=== PATIENT | female | born 1940 | race Caucasian/White ===

== ENCOUNTER → 2016-12-08 | Outpatient (CLI) | payer MEDICARE ==
[~2016-12-08] MED LIST: ASPI81 PO; OMEP20TA OR
[2016-12-08 12:04] LABS: HEMATOCRIT 37.6 % (35.0-46.0); MEAN CELL VOLUME 91.1 FL (80.0-100.0); MEAN CORPUSCULAR HEMOGLOBIN 29.4 PG (27.0-34.0); MEAN CORPUSCULAR HGB CONC 32.3 % (32.0-36.0); PLATELET COUNT 327 TH/MM3 (150-450); RED BLOOD COUNT 4.13 MIL/MM3 (4.00-5.30); RED CELL DISTRIBUTION WIDTH 15.6 % (11.6-17.2); REVIEW FLAG FINAL; WHITE BLOOD COUNT 7.9 TH/MM3 (4.0-11.0)
[2016-12-08 12:09] LABS: BACTERIA, URINE MANY /hpf; BLOOD, URINE SMALL (NEG); GLUCOSE,URINE NEG (NEG); KETONE, URINE NEG (NEG); MUCUS URINE FEW /lpf (OCC); SQUAMOUS EPITHELIAL CELL URINE 3 /hpf (0-5); URINE COLOR YELLOW (YELLW/STRAW)
[2016-12-08 12:12] LABS: NITRITE,URINE POS (NEG)
[2016-12-08 12:33] LABS: TRANSFERRIN IRON PROFILE 260 MG/DL (200-360)
== END ==
LOC: CLAB 11:23
DX: R39.89 Other symptoms and signs involving the genitourinary system (principal); D64.9 Anemia, unspecified
CPT/HCPCS: 36415; 81001; 83540; 83550; 85027

== ENCOUNTER 2017-12-21 21:35 | Observation (INO) | payer MEDICARE ==
[~2017-12-21] VITALS: Ht 157.5 cm; Wt 79.6 kg
[2017-12-21 21:40] VITALS: BP 207/76; PULSE 118; RESP 24; TEMP 98.2; O2SAT 95
[2017-12-21 21:57] VITALS: BP 194/103; PULSE 112; RESP 18; O2SAT 93
[2017-12-21] MEDS ORDERED: OMEP20TA93 PO (22:00)
[2017-12-21] MEDS ORDERED: ASPI81CH6 CHEW (22:00)
[2017-12-21] MEDS ORDERED: SODIUM CHLORIDE 0.9% FLUSH 10 ML FLUSH IVF PRN (22:00)
[2017-12-21] MEDS ORDERED: TEMA15CA PO (22:00)
[2017-12-21 22:25] VITALS: BP 181/82
[2017-12-21 22:25] LABS: AUTOMATED NEUTROPHIL # 5.7 TH/MM3 (1.8-7.7); BASOPHIL # 0.1 TH/MM3 (0-0.2); BASOPHIL % 1.2 % (0.0-2.0); EOSINOPHIL # 0.3 TH/MM3 (0-0.4); EOSINOPHIL % 2.9 % (0.0-4.0); HEMATOCRIT 35.2 % (35.0-46.0); HEMOGLOBIN 11.4 GM/DL (11.6-15.3); LYMPH % 26.4 % (9.0-44.0); LYMPHOCYTE # 2.4 TH/MM3 (1.0-4.8); MEAN CELL VOLUME 88.6 FL (80.0-100.0); MEAN CORPUSCULAR HEMOGLOBIN 28.7 PG (27.0-34.0); MEAN CORPUSCULAR HGB CONC 32.4 % (32.0-36.0); MEAN PLATELET VOLUME 8.4 FL (7.0-11.0); MONO % 8.1 % (0.0-8.0); MONOCYTE # 0.7 TH/MM3 (0-0.9); NEUT % 61.4 % (16.0-70.0); PLATELET COUNT 312 TH/MM3 (150-450); RED BLOOD COUNT 3.98 MIL/MM3 (4.00-5.30); RED CELL DISTRIBUTION WIDTH 14.6 % (11.6-17.2); WHITE BLOOD COUNT 9.2 TH/MM3 (4.0-11.0)
[2017-12-21 22:34] LABS: CHLORIDE 107 MEQ/L (98-107); SODIUM (NA) 140 MEQ/L (136-145)
[2017-12-21 22:38] LABS: ALBUMIN 3.6 GM/DL (3.4-5.0); BICARBONATE 26.8 MEQ/L (21.0-32.0); BLOOD UREA NITROGEN 23 MG/DL (7-18); CALCIUM 8.5 MG/DL (8.5-10.1); GLUCOSE,RANDOM 158 MG/DL (74-106); MAGNESIUM 2.1 MG/DL (1.5-2.5)
[2017-12-21 22:40] LABS: INTERNATIONAL NORMALIZED RATIO 0.9 RATIO; PROTHROMBIN TIME - PATIENT 9.5 SEC (9.8-11.6)
[2017-12-21 22:41] LABS: ALT (GPT) 24 U/L (10-53); AST (GOT) 15 U/L (15-37); CREATININE 0.64 MG/DL (0.50-1.00); GLOMERULAR FILTRATION RATE 90 ML/MIN (>89)
--- NOTE | 2017-12-21 22:41 | RADRPT ---
EXAM DATE/TIME: 12/21/2017 22:27 [facility] COMPARISON: No previous studies available for comparison. INDICATIONS : Dizziness. RADIATION DOSE: 54.75 CTDIvol (mGy) MEDICAL HISTORY : Cerebrovascular disease. Cardiovascular disease SURGICAL HISTORY : None. ENCOUNTER: Initial ACUITY: 1 day PAIN SCALE: 0/10 LOCATION: cranial TECHNIQUE: Multiple contiguous axial images were obtained of the head. Using automated exposure control and adj ustment of the mA and/or kV according to patient size, radiation dose was kept as low as reasonably a chievable to obtain optimal diagnostic quality images. DICOM format image data is available electro nically for review and comparison. FINDINGS: CEREBRUM: The ventricles are normal for age. No evidence of midline shift, mass lesion, hemorrhage or acute in farction. No extra-axial fluid collections are seen. POSTERIOR FOSSA: The cerebellum and brainstem are intact. The 4th ventricle is midline. The cerebellopontine angle i s unremarkable. EXTRACRANIAL: The visualized portion of the orbits is intact. SKULL: The calvaria is intact. No evidence of skull fracture. CONCLUSION: Normal examination for a patient of this age. Ad Gonzalez MD on December 21, 2017 at 22:38 Board Certified Radiologist. This report was verified electronically.
[2017-12-21 22:42] LABS: TOTAL BILIRUBIN ADULT 0.1 MG/DL (0.2-1.0)
[2017-12-21 22:43] LABS: TOTAL PROTEIN 7.4 GM/DL (6.4-8.2)
[2017-12-21 22:44] LABS: ALKALINE PHOSPHATASE 99 U/L (45-117)
[2017-12-21 22:46] LABS: TROPONIN I LESS THAN 0.02 NG/ML (0.02-0.05)
[2017-12-21 23:08] VITALS: BP 177/68; PULSE 87; RESP 18; O2SAT 95
[2017-12-21] MEDS ORDERED: ACETAMINOPHEN 325 MG TAB PO ONE (23:15)
[2017-12-21] MEDS ORDERED: cloNIDine HCL 0.1 MG TAB PO ONE (23:15)
[2017-12-21 23:27] LABS: BILIRUBIN, URINE NEG (NEG); BLOOD, URINE SMALL (NEG); GLUCOSE,URINE NEG (NEG); KETONE, URINE NEG (NEG); NITRITE,URINE NEG (NEG); PH, URINE 5.5 (5.0-8.5); URINE LEUKOCYTE ESTERASE NEG (NEG)
[2017-12-21 23:34] LABS: URINE COLOR YELLOW (YELLW/STRAW)
--- NOTE | 2017-12-21 23:34 | RADRPT ---
EXAM DATE/TIME: 12/21/2017 22:50 [facility] COMPARISON: No previous studies available for comparison. INDICATIONS : Chest palpitations. MEDICAL HISTORY : Cerebrovascular disease. Cardiovascular disease SURGICAL HISTORY : None. ENCOUNTER: Initial ACUITY: 1 day PAIN SCORE: 10 LOCATION: Bilateral chest FINDINGS: Portable AP view of the chest demonstrates a normal-sized cardiac silhouette with calcification of th e aorta. No effusion, consolidation, or pneumothorax is visualized. The bones and soft tissues demons trate no acute abnormality. CONCLUSION: No acute cardiopulmonary abnormality is identified. Bravo Garay MD on December 21, 2017 at 23:31 Board Certified Radiologist. This report was verified electronically.
[2017-12-21 23:35] LABS: MUCUS URINE FEW /lpf (OCC); RBC, URINE 0-3 /hpf (0-3); SQUAMOUS EPITHELIAL CELL URINE 0-5 /hpf (0-5); WBC, URINE 0-2 /hpf (0-5)
[2017-12-21 23:47] VITALS: BP 160/71; PULSE 84; O2SAT 92
[2017-12-22] VITALS (13 sets, daily range): BP systolic 127–165; BP diastolic 57–93; PULSE 66–86; RESP 14–20; TEMP 92–98; O2SAT 92–97
--- NOTE | 2017-12-22 00:14 | PD ---
HPI Chief Complaint: Cardiac Complaint Time Seen by Provider: 21:59 Travel History International Travel<30 days: No Contact w/Intl Traveler<30days: No Traveled to known affect area: No History of Present Illness HPI 77-year-old female presents to the emergency department by private transportation to care for his family for evaluation of racing heart and transient numbness of the left upper extremity. Patient is visiting from [place]. Patient has been here since August. Patient states she is followed by a local physician Dr. Roman while visiting here during the winter months. Patient is followed by primary care and psychiatric tech in [place]. Patient denies any known coronary vascular disease. Patient has had CVA with residual right hand numbness patient reports frequent TIAs. Patient states she does not feel like she had a TIA tonight. Patient states that she has never had a rapid heartbeat before. Patient denies any orthopnea or PND. Patient denies any cough congestion or hemoptysis. Patient's had no recent febrile illness. Patient did drink alcoholic beverages this evening and has had issues with thyroid in the past. Patient has history of emphysema and uses nebulized treatments twice daily and supplemental oxygen at nighttime. Patient does not report sleep apnea. Patient also has reflux. Patient denies history of hypertension dyslipidemia heart disease or diabetes. Patient denies tobacco use. Patient's had no lower extremity pain or swelling. No recent long distance travel protracted bedrest surgical procedure or history of clotting disorder. Patient rates discomfort 0/10 intensity. PFSH Past Medical History Narrative Medical Anemia arthritis COPD CVA TIA GERD thyroid dysfunction; appendectomy hysterectomy cholecystectomy; no tobacco use; nursing notes reviewed Anemia: Yes Arthritis: Yes (OSTEO) Cardiac Catheterization: Yes COPD: Yes Cerebrovascular Accident: Yes (2014)) Diminished Hearing: No GERD: Yes Headaches: Yes Medical other: Yes (MENINGITIS: VIRAL) Pneumonia: Yes Thyroid Disease: Yes ("HYPERACTIVE" IN 50'S) Ulcer: Yes (GASTRIC) Influenza Vaccination: Yes ?: Not Menopausal: Yes : 3 Para: 3 Past Surgical History Appendectomy: Yes Cholecystectomy: Yes Hysterectomy: Yes Oral Surgery: Yes Tonsillectomy: Yes (AND ADENOIDS) Other Surgery: Yes (PROLAPSED BLADDER) Social History Alcohol Use: No (STATED 12/21/17 "NORMALLY I DON'T DRINK, BUT TODAY I HAD 3 WHISKYS") Tobacco Use: No (QUIT AGE 39) Substance Use: No Allergies-Medications (Allergen,Severity, Reaction): Coded Allergies: No Known Allergies (Unverified Allergy, Unknown, 12/22/17) Reported Meds & Prescriptions Reported Meds & Active Scripts Active Reported Temazepam 15 Mg Cap 15 Mg PO HS PRN Omeprazole 20 Mg Tab 20 Mg PO DAILY Aspirin Low Dose (Aspirin) 81 Mg Chew 81 Mg CHEW DAILY Review of Systems Except as stated in HPI: all other systems reviewed are Neg Physical Exam Narrative GENERAL: Well-developed well-nourished female no acute distress or respiratory distress; GCS 15 SKIN: Warm and dry. HEAD: Atraumatic. Normocephalic. EYES: Pupils equal and round. No scleral icterus. No injection or drainage. ENT: No nasal bleeding or discharge. Mucous membranes pink and moist. NECK: Trachea midline. No JVD. CARDIOVASCULAR: Regular rate and rhythm. RESPIRATORY: No accessory muscle use. Clear to auscultation. Breath sounds equal bilaterally. GASTROINTESTINAL: Abdomen soft, non-tender, nondistended. Hepatic and splenic margins not palpable. MUSCULOSKELETAL: Extremities without clubbing, cyanosis, or edema. No obvious deformities. NEUROLOGICAL: Awake and alert. No obvious cranial nerve deficits. Motor grossly within normal limits. Five out of 5 muscle strength in the arms and legs. No limb ataxia. No pronator drift. Sensory exam is intact. GCS 15. Normal speech. PSYCHIATRIC: Appropriate mood and affect; insight and judgment normal. Data Data Last Documented VS Vital Signs Date Time Temp Pulse Resp B/P (MAP) Pulse Ox O2 Delivery O2 Flow Rate FiO2 12/21/17 23:47 84 160/71 (100) 92 Room Air 12/21/17 23:08 18 12/21/17 21:40 98.2 Orders Orders Electrocardiogram (12/21/17 21:59) Complete Blood Count With Diff (12/21/17 21:59) Comprehensive Metabolic Panel (12/21/17 21:59) Magnesium (Mg) (12/21/17 21:59) B-Type Natriuretic Peptide (12/21/17 21:59) Ckmb (Isoenzyme) Profile (12/21/17 21:59) Troponin I (12/21/17 21:59) Act Partial Throm Time (Ptt) (12/21/17 21:59) Prothrombin Time / Inr (Pt) (12/21/17 21:59) Urinalysis - C+S If Indicated (12/21/17 21:59) Chest, Single Ap (12/21/17 21:59) Ct Brain W/O Iv Contrast(Rout) (12/21/17 21:59) Blood Glucose (12/21/17 21:59) Ecg Monitoring (12/21/17 21:59) Iv Access Insert/Monitor (12/21/17 21:59) Oximetry (12/21/17 21:59) Sodium Chloride 0.9% Flush (Ns Flush) (12/21/17 22:00) Lactic Acid (12/21/17 21:59) Drug Screen, Random Urine (12/21/17 22:10) Alcohol (Ethanol) (12/21/17 21:50) Thyroid Stimulating Hormone (12/21/17 21:50) Clonidine (Catapres) (12/21/17 23:15) Acetaminophen (Tylenol) (12/21/17 23:15) Admit Order (Ed Use Only) (12/22/17 ) Financial Analyst Accountant / Telemetry [id number] (12/22/17 00:03) Activity Oob With Assistance (12/22/17 00:03) Notify Dr: Other (12/22/17 00:03) D-Dimer (12/21/17 21:50) Labs Laboratory Tests Test 12/21/17 21:50 12/21/17 22:13 12/21/17 23:00 White Blood Count 9.2 TH/MM3 Red Blood Count 3.98 MIL/MM3 Hemoglobin 11.4 GM/DL Hematocrit 35.2 % Mean Corpuscular Volume 88.6 FL Mean Corpuscular Hemoglobin 28.7 PG Mean Corpuscular Hemoglobin Concent 32.4 % Red Cell Distribution Width 14.6 % Platelet Count 312 TH/MM3 Mean Platelet Volume 8.4 FL Neutrophils (%) (Auto) 61.4 % Lymphocytes (%) (Auto) 26.4 % Monocytes (%) (Auto) 8.1 % Eosinophils (%) (Auto) 2.9 % Basophils (%) (Auto) 1.2 % Neutrophils # (Auto) 5.7 TH/MM3 Lymphocytes # (Auto) 2.4 TH/MM3 Monocytes # (Auto) 0.7 TH/MM3 Eosinophils # (Auto) 0.3 TH/MM3 Basophils # (Auto) 0.1 TH/MM3 CBC Comment DIFF FINAL Differential Comment Prothrombin Time 9.5 SEC Prothromb Time International Ratio 0.9 RATIO Activated Partial Thromboplast Time 25.0 SEC D-Dimer Quantitative (PE/DVT) 0.47 MG/L FEU Blood Urea Nitrogen 23 MG/DL Creatinine 0.64 MG/DL Random Glucose 158 MG/DL Total Protein 7.4 GM/DL Albumin 3.6 GM/DL Calcium Level 8.5 MG/DL Magnesium Level 2.1 MG/DL Alkaline Phosphatase 99 U/L Aspartate Amino Transf (AST/SGOT) 15 U/L Alanine Aminotransferase (ALT/SGPT) 24 U/L Total Bilirubin 0.1 MG/DL Sodium Level 140 MEQ/L Potassium Level 3.5 MEQ/L Chloride Level 107 MEQ/L Carbon Dioxide Level 26.8 MEQ/L Anion Gap 6 MEQ/L Estimat Glomerular Filtration Rate 90 ML/MIN Total Creatine Kinase 34 U/L Troponin I LESS THAN 0.02 NG/ML B-Type Natriuretic Peptide 58 PG/ML Thyroid Stimulating Hormone 3rd Gen 1.480 uIU/ML Ethyl Alcohol Level LESS THAN 3 MG/DL Lactic Acid Level 1.5 mmol/L Urine Color YELLOW Urine Turbidity CLEAR Urine pH 5.5 Urine Specific [place] 1.016 Urine Protein NEG mg/dL Urine Glucose (UA) NEG mg/dL Urine Ketones NEG mg/dL Urine Occult Blood SMALL Urine Nitrite NEG Urine Bilirubin NEG Urine Leukocyte Esterase NEG Urine RBC 0-3 /hpf Urine WBC 0-2 /hpf Urine Squamous Epithelial Cells 0-5 /hpf Urine Mucus FEW /lpf Microscopic Urinalysis Comment CULT NOT INDICATED Urine Opiates Screen NEG Urine Barbiturates Screen NEG Urine Amphetamines Screen NEG Urine Benzodiazepines Screen NEG Urine Cocaine Screen NEG Urine Cannabinoids Screen NEG [facility] Medical Decision Making Medical Screen Exam Complete: Yes Emergency Medical Condition: Yes Medical Record Reviewed: Yes Interpretation(s) d-dimer: 0.47, not elevated EKG: Sinus tachycardia no acute ST elevation injury pattern or ectopy noted CBC & BMP Diagram 12/21/17 21:50 Total Protein 7.4, Albumin 3.6, Calcium Level 8.5, Magnesium Level 2.1, Alkaline Phosphatase 99, Aspartate Amino Transf (AST/SGOT) 15, Alanine Aminotransferase (ALT/SGPT) 24, Total Bilirubin 0.1 L Vital Signs Date Time Temp Pulse Resp B/P (MAP) Pulse Ox O2 Delivery O2 Flow Rate FiO2 12/21/17 23:47 84 160/71 (100) 92 Room Air 12/21/17 23:08 87 18 177/68 (104) 95 Room Air 12/21/17 22:25 181/82 (115) 12/21/17 21:57 112 18 194/103 (133) 93 Room Air 12/21/17 21:40 98.2 118 24 207/76 (119) 95 12/21/17 21:40 93 Room Air Last Impressions Head CT [id number]/21/[id number] Signed Impressions: Service Date/Time: Thursday, December 21, 2017 22:27 - CONCLUSION: Normal examination for a patient of this age. Ad Gonzalez MD Chest X-Ray 12/21/172158 Signed Impressions: Service Date/Time: Thursday, December 21, 2017 22:50 - CONCLUSION: No acute cardiopulmonary abnormality is identified. Bravo Garay MD Differential Diagnosis Palpitations, arrhythmia, TIA, CVA, atypical chest pain, ACS, exacerbation COPD , PE Narrative Course Patient without recent respiratory illness travel chest pain or shortness of breath presents for complaint increased heart rate and transient numbness of the left upper extremities which was resolved. Patient sent for stat CT brain noncontrast EKG is sinus tachycardia with no acute injury pattern; systems collected and sent for resulting Patient has returned from [place] and heart rate is sinus rhythm without ectopy patient continues to deny any recurrence of paresthesias or focality on exam. O2 saturations 92-95% on room air patient reports that she is a supplemental oxygen at bedtime 1.5 L nasal cannula Lab data is found to be grossly within normal limits; in view of tachycardia and O2 sats of 92% we will perform a d-dimer if this is elevated we will proceed with a CT pulmonary angiogram; patient's case discussed with on-call medicine for palpitations and possible TIA patient will be admitted for observation Physician Communication Physician Communication discussed with Dr Nicholson -- OBS Diagnosis Primary Impression: Rapid palpitations Additional Impressions: TIA (transient ischemic attack) History of COPD Admitting Information Admitting Physician Requests: Observation Jayla Oakes MD Dec 22, 2017 00:14
[2017-12-22] MEDS ORDERED: SODIUM CHLORIDE 0.9% FLUSH 10 ML FLUSH IV FLUSH PRN (00:15)
[2017-12-22] MEDS ORDERED: ACETAMINOPHEN 325 MG TAB PO PRN (00:15)
[2017-12-22] MEDS ORDERED: DEXTROSE 50% IN WATER 50 ML VIAL(D50) IV PUSH PRN (00:15)
[2017-12-22] MEDS ORDERED: GLUCAGON 1 MG/ML VIAL OTHER PRN (00:15)
[2017-12-22] MEDS ORDERED: ONDANSETRON HCL 4 MG/2 ML VIAL IVP PRN (00:15)
[2017-12-22] MEDS: HEPARIN SODIUM - SQ 10,000 UNITS/ML VIAL SQ SCH ×4 (00:34→23:34)
[2017-12-22 00:38] LABS: D-DIMER 0.47 MG/L FEU (0.00-0.50)
[2017-12-22 04:37] LABS: TROPONIN I LESS THAN 0.02 NG/ML (0.02-0.05)
[2017-12-22] MEDS: INSULIN ASPART SUPPLEMENTAL SCALE SQ SCH ×4 (08:00→21:00)
--- NOTE | 2017-12-22 10:04 | RADRPT ---
EXAM DATE/TIME: 12/22/2017 09:24 [facility] COMPARISON: No previous studies available for comparison. INDICATIONS : Transient ischemic attack. MEDICAL HISTORY : Chronic obstructive pulmonary disease. Gastroesophageal reflux disease. Dyspnea. Ulcer. Arthritis. SURGICAL HISTORY : Tonsillectomy. Appendectomy. Cholecystectomy. Cardiac catheterization. Hysterectomy. Knee surgery. ENCOUNTER: Initial ACUITY: 1 day PAIN SCORE: 0/10 LOCATION: Bilateral neck PEAK SYSTOLIC VELOCITIES (cm/sec): ICA/CCA RATIO: Right: 1.0 Left: 1.4 ICA: Right: 129 Left: 123 CCA: Right: 136 Left: 90 ECA: Right: 153 Left: 117 VERTEBRAL: Right: 65 antegrade Left: 36 antegrade Elevated flow velocities and ICA/CCA ratios have been found to correlate with increased degrees of vessel stenosis, calculated as percentage of diameter relative to a normal segment of distal ICA/CCA FINDINGS: RIGHT CAROTID: There is no evidence for a hemodynamically significant carotid stenosis. Minimal int imal hyperplasia is present with scattered calcific plaque. LEFT CAROTID: There is no evidence for a hemodynamically significant carotid stenosis. Minimal inti mal hyperplasia is present with scattered calcific plaque. VERTEBRAL ARTERIES: Flow is antegrade in both vertebral arteries. MISCELLANEOUS: There are no ancillary masses or adenopathy. CONCLUSION: Negative examination for a hemodynamically significant carotid stenosis. Jacques Menezes MD FACR on December 22, 2017 at 10:02 Board Certified Radiologist. This report was verified electronically.
[2017-12-22 10:26] LABS: TROPONIN I LESS THAN 0.02 NG/ML (0.02-0.05)
[2017-12-22] MEDS ORDERED: LORazepam 2 MG/ML VIAL IV PUSH ONE (10:30)
[2017-12-22] MEDS: SODIUM CHLORIDE 0.9% FLUSH 10 ML FLUSH IV FLUSH SCH ×2 (10:49→21:00)
[2017-12-22] MEDS: ASPIRIN 325 MG TAB PO SCH (10:51)
--- NOTE | 2017-12-22 10:51 | EKG ---
Date Performed: 12/22/2017 Time Performed: 09:57:54 PTAGE: 77 years EKG: Sinus rhythm NORMAL ECG PREVIOUS TRACING : 12/22/2017 03.49 DOCTOR: Evangelist Benedict Interpretating Date/Time 12/22/2017 10:50:24
[2017-12-22] MEDS: SODIUM CHLOR 0.9% 1000 ML INJ 1,000 ML IV SCH ×2 (10:57→23:34)
--- NOTE | 2017-12-22 11:00 | EKG ---
Date Performed: 12/22/2017 Time Performed: 03:49:45 PTAGE: 77 years EKG: Sinus rhythm NORMAL ECG PREVIOUS TRACING : 12/21/2017 21.50 DOCTOR: Evangelist Benedict Interpretating Date/Time 12/22/2017 10:56:47
--- NOTE | 2017-12-22 11:08 | MB ---
cc: YAKOV HULL DATE OF CONSULTATION 12/22/2017 REASON FOR CONSULTATION This is a 77-year-old right-handed woman with COPD, hypothyroidism years ago, a stroke in 10/2015 with some right hemisensory loss. She takes a baby aspirin a day. 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 Yesterday she had three drinks over about five hours when she was out riding a motorcycle then her heart rate seemed to go very high. Her could feel that it was high and then her left hand went numb and that has resolved. She had a stroke in 2014 which left with a little bit of numbness in the corner of her mouth and the right hand. SOCIAL HISTORY No a smoker or a drinker, lives with her . FAMILY HISTORY Positive cancer, negative for seizure or stroke. REVIEW OF SYSTEMS Denies any hypertension, diabetes, SC, CABG, stent, angioplasty, atrial fibrillation, Coumadin, renal, or hepatic disease, lupus, ulcer, cancer, seizure. ALLERGIES NO KNOWN DRUG ALLERGIES. MEDICATIONS 1. Temazepam 2. Omeprazole 3. Aspirin 81 mg PHYSICAL EXAM On exam heart rate here initially 118, pulse is 77. She was in sinus rhythm on EKG. EKG was read as sinus tach in the ER. NECK: There were no carotid bruits. HEART: Regular rhythm. I do not detect a murmur. NEUROLOGIC: Pupils are equal, visual harris are full. Extraocular movement intact without nystagmus. Face symmetrical with normal station. Tongue was midline. There is no drift. She had normal strength in her upper and lower extremities bilaterally. Fast finger movements are symmetric and normal especially on the left. Tapping of the fingers was normal on the left. DTRs are trace throughout. Toes are downgoing bilaterally. Pinprick is intact throughout including the right the left hand and face and legs. Vibratory sense was also intact throughout. She is not ataxic on [id number]. Speech is fluent. She is not aphasic. LABORATORY DATA CBC is essentially normal. BMP is normal. Magnesium, calcium LFTs, CPK, troponin, albumin TSH, urine drug screen, UA all normal. Carotid ultrasound read as negative. CT scan of the brain, question about a left thalamic lacunar type infarct, probably old from the old stroke that she had. Chest x-ray negative. IMPRESSION Old stroke in 2014 on aspirin, some tachycardia with left hand numbness. A small stroke here could be considered. We will do an MRI of the brain, MRA [place]. I am concerned with the tachycardia. It is possible, I suppose, if she can she had any atrial fibrillation, she could have a TIA or stroke. We will see what the MRI shows. I would recommend a 30-day Holter monitor as an outpatient. We will do an echo and Holter here. I would recommend having cardiology see her which she will need to follow up outpatient to get this 30-day monitor done. For now, we will switch her to Plavix for possibly what was a TIA and you can stop her aspirin in three days, she should be notified of that. We will know more after the MRI. MD DENA Strickland/HARRY /10:21 AM /10:44 AM
--- NOTE | 2017-12-22 11:20 | EKG ---
Date Performed: 12/21/2017 Time Performed: 21:50:57 PTAGE: 77 years EKG: SINUS TACHYCARDIA ABNORMAL RHYTHM ECG NO PREVIOUS TRACING DOCTOR: Evangelist Benedict Interpretating Date/Time 12/22/2017 11:18:53
[2017-12-22] MEDS ORDERED: BUDE0.25 NEB (11:40)
[2017-12-22] MEDS ORDERED: ALBU1.25 NEB (11:40)
[2017-12-22] MEDS ORDERED: RESP: ALBUTEROL 2.5 MG/IPRATROPIUM 0.5 MG NEB (PRN) NEB (12:00)
[2017-12-22] MEDS ORDERED: RESP: ALBUTEROL 1.25 MG/3 ML NEB (PRN) ONE (12:00)
[2017-12-22] MEDS: RESP: ALBUTEROL 1.25 MG/3 ML NEB (PRN) NEB ×2 (12:05→20:21)
[2017-12-22] MEDS: RESP: BUDESONIDE 0.25 MG/2 ML NEB NEB SCH ×2 (12:17→20:21)
[2017-12-22] MEDS: CLOPIDOGREL 75 MG TAB PO SCH (12:47)
--- NOTE | 2017-12-22 14:20 | HHI.HP ---
[facility] Service [place] [facility] Primary Care Physician Ghislaine Roman MD Admission Diagnosis Palpitations; tia; h/o copd Diagnoses: (1) TIA (transient ischemic attack) Chief Complaint: Palpitations Left hand numbness Travel History International Travel<30 Days: No Contact w/Intl Traveler <30 Da: No Traveled to Known Affected Are: No History of Present Illness This is a pleasant 77-year-old female patient with a known medical history of COPD and history of CVA who presented to the ED with complaints of palpitations and left hand numbness. Patient states that last evening she suddenly felt her heart racing and developed transient numbness of her left hand. Patient states that she was out in showing the evening with her riding her motorcycle and socially drinking alcohol when she developed his symptoms. Patient does admit to a history of CVA in the past that left her with residual right hand numbness and mild numbness around her mouth.. She states that she does have frequent TIAs. Patient does follow with Dr. Roman in the outpatient setting but is originally from [place] and has been following with a business account leader there. Denies any recent illness including fever, chills, cough, shortness of breath, dominant, nausea, vomiting or diarrhea. Does admit to history of COPD and use of home oxygen at night, 1.5 L nasal cannula. At the time of assessment patient denies any continued left hand numbness or palpitations. All symptoms have resolved at this time. Review of Systems Constitutional: DENIES: Fever, Weight loss Eyes: DENIES: Blurred vision, Diplopia Ears, nose, mouth, throat: DENIES: Tinnitus Respiratory: COMPLAINS OF: Shortness of breath, DENIES: Cough, Sputum production Cardiovascular: COMPLAINS OF: Palpitations, DENIES: Chest pain Gastrointestinal: DENIES: Abdominal pain, Black stools, Bloody stools, Constipation, Diarrhea, Nausea, Vomiting Musculoskeletal: DENIES: Joint pain Integumentary: DENIES: Abnormal pigmentation Hematologic/lymphatic: DENIES: Bruising Immunologic/allergic: DENIES: Eczema Neurologic: DENIES: Abnormal gait Psychiatric: COMPLAINS OF: Anxiety Except as stated in HPI: all other systems reviewed are Neg Past Family Social History Past Medical History Anemia Osteoarthritis COPD History of CVA GERD Headache History of hyperthyroidism Past Surgical History Appendectomy Cholecystectomy Hysterectomy Tonsillectomy Adenoidectomy Prolapsed bladder Reported Medications Active Reported Albuterol Neb (Albuterol Sulfate) 1.25 Mg/3 Ml Neb 1.25 Mg NEB Q12HR PRN Budesonide Neb 0.25 Mg/2 Ml Neb 0.25 Mg NEB Q12HR NEB Temazepam 15 Mg Cap 15 Mg PO HS PRN Omeprazole 20 Mg Tab 20 Mg PO DAILY Aspirin Low Dose (Aspirin) 81 Mg Chew 81 Mg CHEW DAILY Allergies: Coded Allergies: No Known Allergies (Unverified Allergy, Unknown, 12/22/17) Active Ordered Medications Current Medications Medications (Trade) Dose Ordered Sig/Gregorio Route Start Time Stop Time Status Last Admin (NS Flush) 2 ml UNSCH PRN IV FLUSH 12/22/17 00:15 (NS Flush) 2 ml BID IV FLUSH 12/22/17 09:00 12/22/17 10:49 (Tylenol) 650 mg Q4H PRN PO 12/22/17 00:15 (Zofran Inj) 4 mg Q6H PRN IVP 12/22/17 00:15 12/22/17 04:43 (Heparin Inj) 5,000 units Q8H SQ 12/22/17 00:15 12/22/17 10:50 (Aspirin) 325 mg DAILY PO 12/22/17 09:00 12/22/17 10:51 (NovoLOG SUPPLEMENTAL SCALE) 1 ACHS SQ 12/22/17 08:00 (D50w (Vial) Inj) 50 ml UNSCH PRN IV PUSH 12/22/17 00:15 (Glucagon Inj) 1 mg UNSCH PRN OTHER 12/22/17 00:15 (Plavix) 75 mg DAILY PO 12/22/17 11:00 12/22/17 12:47 Sodium Chloride 1,000 ml @ 75 mls/hr [id number] IV 12/22/17 10:25 12/22/17 10:57 (Albuterol Neb) 1.25 mg Q12HR NEB PRN NEB 12/22/17 12:00 12/22/17 12:05 (Pulmicort Respule Neb) 0.25 mg Q12HR NEB NEB 2/7/18 13:00 12/22/17 12:17 Family History Maternal medical history significant for colon cancer. Paternal medical history significant for TIA and CVA. Social History Denies any current tobacco use. States she quit smoking in 1985. Admits to socially drinking alcohol. Denies any illicit drug use. Physical Exam Vital Signs Vital Signs Date Time Temp Pulse Resp B/P (MAP) Pulse Ox O2 Delivery O2 Flow Rate FiO2 12/22/17 13:23 96.3 69 16 152/62 (92) 97 12/22/17 12:07 93 21 12/22/17 08:59 97.0 66 14 136/93 (107) 95 12/22/17 04:00 95.9 74 20 157/77 (103) 93 12/22/17 03:50 96 Nasal Cannula 2.00 12/22/17 02:27 78 12/22/17 01:56 97.3 77 16 156/76 (102) 95 12/22/17 01:04 12/22/17 00:40 76 140/74 (96) 94 Room Air 12/22/17 00:29 86 18 127/57 (80) 96 Room Air 12/21/17 23:47 84 160/71 (100) 92 Room Air 12/21/17 23:08 87 18 177/68 (104) 95 Room Air 12/21/17 22:25 181/82 (115) 12/21/17 21:57 112 18 194/103 (133) 93 Room Air 12/21/17 21:40 98.2 118 24 207/76 (119) 95 12/21/17 21:40 93 Room Air Physical Exam GENERAL: Well-nourished, well-developed patient in NAD. SKIN: Warm and dry. No rash. HEAD: Normocephalic. Atraumatic. EYES: Pupils equal and round. No scleral icterus. No injection or drainage. ENT: No nasal bleeding or discharge. Mucous membranes pink and moist. NECK: Supple. Trachea midline. CARDIOVASCULAR: Regular rate and rhythm. S1, S2 noted. No murmur appreciated. RESPIRATORY: No accessory muscle use. Clear to auscultation. Breath sounds equal bilaterally. GASTROINTESTINAL: Abdomen soft, non-tender, nondistended. Normoactive bowel sounds x4. MUSCULOSKELETAL: No obvious deformities. Extremities without clubbing, cyanosis , or edema. NEUROLOGICAL: Awake and alert. No obvious cranial nerve deficits. Motor grossly within normal limits. 5/5 muscle strength in bilateral upper and lower extremities. Normal speech. No facial droop. PSYCHIATRIC: Appropriate mood and affect; insight and judgment normal. Laboratory Laboratory Tests Test 12/21/17 21:50 12/21/17 22:13 12/21/17 23:00 12/22/17 03:40 White Blood Count 9.2 Red Blood Count 3.98 Hemoglobin 11.4 Hematocrit 35.2 Mean Corpuscular Volume 88.6 Mean Corpuscular Hemoglobin 28.7 Mean Corpuscular Hemoglobin Concent 32.4 Red Cell Distribution Width 14.6 Platelet Count 312 Mean Platelet Volume 8.4 Neutrophils (%) (Auto) 61.4 Lymphocytes (%) (Auto) 26.4 Monocytes (%) (Auto) 8.1 Eosinophils (%) (Auto) 2.9 Basophils (%) (Auto) 1.2 Neutrophils # (Auto) 5.7 Lymphocytes # (Auto) 2.4 Monocytes # (Auto) 0.7 Eosinophils # (Auto) 0.3 Basophils # (Auto) 0.1 CBC Comment DIFF FINAL Differential Comment Prothrombin Time 9.5 Prothromb Time International Ratio 0.9 Activated Partial Thromboplast Time 25.0 D-Dimer Quantitative (PE/DVT) 0.47 Blood Urea Nitrogen 23 Creatinine 0.64 Random Glucose 158 Total Protein 7.4 Albumin 3.6 Calcium Level 8.5 Magnesium Level 2.1 Alkaline Phosphatase 99 Aspartate Amino Transf (AST/SGOT) 15 Alanine Aminotransferase (ALT/SGPT) 24 Total Bilirubin 0.1 Sodium Level 140 Potassium Level 3.5 Chloride Level 107 Carbon Dioxide Level 26.8 Anion Gap 6 Estimat Glomerular Filtration Rate 90 Total Creatine Kinase 34 28 Troponin I LESS THAN 0.02 LESS THAN 0.02 B-Type Natriuretic Peptide 58 Thyroid Stimulating Hormone 3rd Gen 1.480 Ethyl Alcohol Level LESS THAN 3 Lactic Acid Level 1.5 Urine Color YELLOW Urine Turbidity CLEAR Urine pH 5.5 Urine Specific [place] 1.016 Urine Protein NEG Urine Glucose (UA) NEG Urine Ketones NEG Urine Occult Blood SMALL Urine Nitrite NEG Urine Bilirubin NEG Urine Leukocyte Esterase NEG Urine RBC 0-3 Urine WBC 0-2 Urine Squamous Epithelial Cells 0-5 Urine Mucus FEW Microscopic Urinalysis Comment CULT NOT INDICATED Urine Opiates Screen NEG Urine Barbiturates Screen NEG Urine Amphetamines Screen NEG Urine Benzodiazepines Screen NEG Urine Cocaine Screen NEG Urine Cannabinoids Screen NEG Test 12/22/17 09:45 Total Creatine Kinase 30 Troponin I LESS THAN 0.02 Result Diagram: 12/21/[id number]/[id number]/[id number] Imaging Last Impressions Carotid Artery Ultrasound 12/22/17 0000 Signed Impressions: Service Date/Time: Friday, December 22, 2017 09:24 - CONCLUSION: Negative examination for a hemodynamically significant carotid stenosis. Jacques Menezes MD FACR Head CT [id number]/[id number] Signed Impressions: Service Date/Time: Thursday, December 21, 2017 22:27 - CONCLUSION: Normal examination for a patient of this age. Ad Gonzalez MD Chest X-Ray 12/21/172158 Signed Impressions: Service Date/Time: Thursday, December 21, 2017 22:50 - CONCLUSION: No acute cardiopulmonary abnormality is identified. Bravo Garay MD Septic Shock Reassessment Septic shock perfusion: reassessment completed Caprini VTE Risk Assessment Caprini VTE Risk Assessment: Mod/High Risk (score >= 2) Caprini Risk Assessment Model Point Value = 1 Point Value = 2 Point Value = 3 Point Value = 5 Age 41-60 Minor surgery BMI > 25 kg/m2 Swollen legs Varicose veins or History of unexplained or recurrent spontaneous Oral contraceptives or hormone replacement Sepsis (< 1 month) Serious lung disease, including pneumonia (< 1 month) Abnormal pulmonary function Acute myocardial infarction Congestive heart failure (< 1 month) History of inflammatory bowel disease Medical patient at bed rest Age 61-74 Arthroscopic surgery Major open surgery (> 45 min) Laparoscopic surgery (> 45 min) Malignancy Confined to bed (> 72 hours) Immobilizing plaster cast Central venous access Age >= 75 History of VTE Family history of VTE Factor V Leiden Prothrombin [id number] Lupus anticoagulant Anticardiolipin antibodies Elevated serum homocysteine Heparin-induced thrombocytopenia Other congenital or acquired thrombophilia Stroke (< 1 month) Elective arthroplasty Hip, pelvis, or leg fracture Acute spinal cord injury (< 1 month) Prophylaxis Regimen Total Risk Factor Score Risk Level Prophylaxis Regimen 0-1 Low Early ambulation 2 Moderate Order ONE of the following: *Sequential Compression Device (SCD) *Heparin 5000 units SQ BID 3-4 Higher Order ONE of the following medications: *Heparin 5000 units SQ TID *Enoxaparin/Lovenox 40 mg SQ daily (WT < 150 kg, CrCl > 30 mL/min) *Enoxaparin/Lovenox 30 mg SQ daily (WT < 150 kg, CrCl > 10-29 mL/min) *Enoxaparin/Lovenox 30 mg SQ BID (WT < 150 kg, CrCl > 30 mL/min) AND/OR *Sequential Compression Device (SCD) 5 or more Highest Order ONE of the following medications: *Heparin 5000 units SQ TID (Preferred with Epidurals) *Enoxaparin/Lovenox 40 mg SQ daily (WT < 150 kg, CrCl > 30 mL/min) *Enoxaparin/Lovenox 30 mg SQ daily (WT < 150 kg, CrCl > 10-29 mL/min) *Enoxaparin/Lovenox 30 mg SQ BID (WT < 150 kg, CrCl > 30 mL/min) AND *Sequential Compression Device (SCD) Assessment and Plan Problem List: (1) TIA (transient ischemic attack) ICD Code: G45.9 - Transient cerebral ischemic attack, unspecified Status: Acute (2) Rapid palpitations ICD Code: R00.2 - Palpitations Status: Acute Assessment and Plan This is a pleasant 77-year-old female patient with a known medical history of COPD and history of CVA who presented to the ED with complaints of palpitations and left hand numbness. Rule out CVA versus TIA, patient with left hand numbness Head CT reviewed showing normal examination. Carotid ultrasound performed showing negative examination. Awaiting MRI. Follow. Echo has been done, awaiting results. Follow. CBC and BMP reviewed and essentially unremarkable. TSH normal. BNP normal. UA negative. Neurology started on Plavix. Continue IV fluids. Start on PO diet, monitor for dysphagia. PT following patient, no recommendations. Tachycardia Serial troponins flat. D-dimer negative on presentation. EKG reviewed showing normal sinus rhythm, controlled heart rate Continue cardiac telemetry, monitor for any arrhythmias. Neurology recommending thirty day Holter monitor. Will consult cardiology, appreciate input and recommendations. COPD not in exacerbation Chest x-ray reviewed showing no acute cardiopulmonary abnormality. Supplemental O2 is needed. Duo nebs scheduled and when necessary. DVT prophylaxis: SCDs. Heparin. Sultana Braden Dec 22, 2017 14:20
[2017-12-22] MEDS ORDERED: TEMAZEPAM 15 MG CAP PO PRN (14:30)
--- NOTE | 2017-12-22 15:26 | RADRPT ---
EXAM DATE/TIME: 12/22/2017 13:13 [facility] COMPARISON: No previous studies available for comparison. INDICATIONS : TIA. MEDICAL HISTORY : Chronic obstructive pulmonary disease. Gastroesophageal reflux disease. Dyspnea, TIA SURGICAL HISTORY : Tonsillectomy. Appendectomy. Cholecystectomy. Cardiac catheterization. ENCOUNTER: Subsequent ACUITY: 2 day PAIN SCORE: 0/10 LOCATION: Brain Please note a normal MRA of the brain does not entirely exclude the possibility of a small aneurysm, nor the possibility of distal intracranial vessel disease. TECHNIQUE: 3D time of flight MRA was performed. Source images, multiplanar STS MIP, and 3D volume MIP reconstru ctions were reviewed. FINDINGS: Examination of the anterior circulation demonstrates no evidence of aneurysm or vascular information. No there is stenosis involving the left middle cerebral artery in the insula of 50-60%. The left vertebral artery terminates in the posterior inferior cerebral artery which can be seen as a normal variation with a dominant right vertebral artery. There is mild stenosis involving the P2 se gment of the right posterior cerebral artery 20-30%. CONCLUSION: 1. 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 There is no evidence of aneurysm. Stone Soriano MD on December 22, 2017 at 15:10 Board Certified Radiologist. This report was verified electronically.
[2017-12-22] MEDS ORDERED: RESP: ALBUTEROL 2.5 MG/IPRATROPIUM 0.5 MG NEB (SCH) NEB (16:00)
[2017-12-22 17:11] LABS: HEMOGLOBIN A1C 6.5 % (4.3-6.0)
--- NOTE | 2017-12-22 17:34 | RADRPT ---
EXAM DATE/TIME: 12/22/2017 13:13 [facility] COMPARISON: No previous studies available for comparison. INDICATIONS : TIA. MEDICAL HISTORY : Chronic obstructive pulmonary disease. Gastroesophageal reflux disease. Dyspnea. TIA SURGICAL HISTORY : Tonsillectomy. Appendectomy. Cholecystectomy. Cardiac catheterization. ENCOUNTER: Subsequent ACUITY: 2 day PAIN SCORE: 0/10 LOCATION: brain TECHNIQUE: Multiplanar, multisequence MRI of the brain was performed without contrast. FINDINGS: There is a tiny remote lacunar infarct in the left thalamus. There are a few punctate areas of nonspe cific white matter signal change which appear fairly benign. There is no evidence of intracranial mas s or hemorrhage. There is nothing to suggest acute infarction. Ventricles are symmetric and normal. There are mucus retention cysts in the maxillary antra bilaterally. Extracranial structures are other key unremarkable. CONCLUSION: No acute intracranial findings. Bravo Price MD on December 22, 2017 at 17:27 Board Certified Radiologist. This report was verified electronically.
--- NOTE | 2017-12-22 18:02 | HHI.DCPOC ---
Discharge Care Plan Diagnosis: (1) TIA (transient ischemic attack) (2) Rapid palpitations (3) History of COPD Goals to Promote Your Health * To prevent worsening of your condition and complications * To maintain your health at the optimal level Directions to Meet Your Goals Take your medications as prescribed Follow your dietary instruction Follow activity as directed Keep your appointments as scheduled Take your immunizations and boosters as scheduled If your symptoms worsen call your PCP, if no PCP go to Urgent Care Center or Emergency Room Smoking is Dangerous to Your Health. Avoid second hand smoke Call the 24-hour hour crisis hotline for domestic abuse at Sultana Braden Dec 22, 2017 18:02
[2017-12-22] MEDS ORDERED: PLAV75TA29 PO (18:04)
[2017-12-22] MEDS ORDERED: ASA325 PO (18:04)
[2017-12-22] MEDS: PANTOPRAZOLE SOD 20 MG DELAYED RELEASE TAB PO SCH (18:49)
--- NOTE | 2017-12-22 19:51 | ECHRPT ---
Indication: CVA/TIA CONCLUSIONS Technically difficult study The left ventricular systolic function is grossly normal on limited imaging. Mild concentric left ventricular hypertrophy. [id number] mitral valve regurgitation. There is trace tricuspid valve regurgitation. BP: 157 / 77 HR: 74 Rhythm: Sinus MEASUREMENTS (Male / Female) Normal Values Technical Quality:Fair 2D ECHO LV Diastolic Diameter PLAX 5.2 cm 4.2 - 5.9 / 3.9 - 5.3 cm LV Systolic Diameter PLAX 2.9 cm IVS Diastolic Thickness 1.2 cm 0.6 - 1.0 / 0.6 - 0.9 cm LVPW Diastolic Thickness 1.2 cm 0.6 - 1.0 / 0.6 - 0.9 cm LV Relative Wall Thickness 0.4 RV Internal Dim ED PLAX 2.6 cm LVOT Diameter 2.1 cm Aortic Root Diameter 2.8 cm LA Systolic Diameter LX 3.2 cm 3.0 - 4.0 / 2.7 - 3.8 cm M-MODE AV Cusp Separation MM 2.1 cm DOPPLER AV Peak Velocity 106.0 cm/s AV Peak Gradient 4.5 mmHg AV Mean Gradient 3.0 mmHg AV Velocity Time Integral 24.3 cm LVOT Peak Velocity 81.2 cm/s LVOT Peak Gradient 2.6 mmHg LVOT Velocity Time Integral 19.4 cm AV Area Cont Eq vti 2.8 cm AV Area Cont Eq pk 2.7 cm Mitral E Point Velocity 93.8 cm/s Mitral A Point Velocity 106.0 cm/s Mitral E to A Ratio 0.9 LV E' Lateral Velocity 8.5 cm/s Mitral E to LV E' Lateral Ratio 11.1 LV E' Septal Velocity 6.4 cm/s Mitral E to LV E' Septal Ratio 14.6 TR Peak Velocity 233.0 cm/s TR Peak Gradient 21.7 mmHg Right Atrial Pressure 10.0 mmHg Pulmonary Artery Systolic Pressu 31.7 mmHg Right Ventricular Systolic Press 31.7 mmHg PV Peak Velocity 68.4 cm/s PV Peak Gradient 1.9 mmHg FINDINGS LEFT VENTRICLE Normal left ventricular size. Mild concentric left ventricular hypertrophy. The left ventricular systolic function is grossly normal on limited imaging. RIGHT VENTRICLE Right ventricle is grossly normal LEFT ATRIUM The left atrial size is [id number] dilated. RIGHT ATRIUM The right atrial size is mildly dilated. ATRIAL SEPTUM No atrial level shunt is demonstrated by color flow Doppler interrogation. AORTA The aortic root and proximal ascending aorta are normal in size on limited imaging. MITRAL VALVE Grossly normal mitral valve [id number] mitral valve regurgitation. AORTIC VALVE Probable trileaflet aortic valve. No aortic valve stenosis or regurgitation. TRICUSPID VALVE There is trace tricuspid valve regurgitation. The estimated pulmonary arterial pressure is 31.7 mmHg. PULMONARY VALVE No pulmonary valve regurgitation or stenosis. VESSELS The inferior vena cava is normal in size. PERICARDIUM A prominent epicardial fat pad is present. Coy Aden DO (Electronically Signed) Final Date:22 December 2017 19:50
--- NOTE | 2017-12-22 23:08 | MB ---
cc: DEE GARCIA MD DATE OF CONSULTATION: 12/22/2017 REASON FOR CONSULTATION: Tachycardia. HISTORY OF PRESENT ILLNESS: Ms. Vera is a 77 year-old female who does have a history of COPD and CVA. She presented to the emergency room with complaints of her heart racing and pounding. This occurred while she was resting, after she had about three drinks. The patient was noted to be tachycardiac on arrival and cardiology was subsequently requested to evaluate the patient. She has no current complaints and is requesting discharge. PAST MEDICAL HISTORY: 1. CVA. 2. COPD. 3. Arthritis. 4. Anemia. 5. Headache. 6. Hyperthyroidism. PAST SURGICAL HISTORY: 1. Appendectomy. 2. Cholecystectomy. 3. Hysterectomy. 4. Tonsillectomy. 5. Bladder repair. OUTPATIENT MEDICATIONS: 1. Albuterol 2. Budesonide. 3. Temazepam. 4. Omeprazole. 5. Aspirin ALLERGIES: NONE KNOWN. FAMILY HISTORY: Positive for CVA. SOCIAL HISTORY: The patient is a former smoker. PHYSICAL EXAMINATION: VITAL SIGNS: Temperature 96.3, 69, 16, 152/62. GENERAL: She is a well-appearing elderly female who is in no apparent distress. NECK: Free from JVD. LUNGS: Bilaterally decreased and clear to auscultation. CARDIAC: She has a normal S1-S2. No murmurs, rubs, or gallops appreciated. ABDOMEN: Soft. EXTREMITIES: Free from edema. LABORATORY VALUES: Significant for serial troponins of less than 0.02. IMAGING STUDIES: MRI shows no acute intracranial findings. Telemetry - normal sinus rhythm. ECG: Her initial ECG does show sinus tachycardia. IMPRESSION: 1. Tachycardia. The patient has had some tachycardia that precipitated her visit. It was sinus. She has not had any further episodes. The patient has a Holter monitor ordered. This can be completed as an outpatient if so desired. 2. Possible CVA. Evaluation is being undertaken by neurology. 3. I will be available on a p.r.n. basis. Dee Garcia M.D. SARITHA/POOJA /5:57 PM /10:57 PM
[2017-12-23] VITALS: BP 113/58; PULSE 75; RESP 20; TEMP 97.6; O2SAT 97
[2017-12-23 00:27] LABS: CHOLESTEROL/ HDL RATIO 2.25 RATIO; HDL CHOLESTEROL 68.4 MG/DL (40.0-60.0)
[2017-12-23] MEDS: SODIUM CHLOR 0.9% 1000 ML INJ 1,000 ML IV SCH (00:35)
[2017-12-23 04:00] VITALS: BP 123/66; PULSE 72; RESP 20; TEMP 98.3; O2SAT 96
[2017-12-23 07:10] LABS: AUTOMATED NEUTROPHIL # 2.9 TH/MM3 (1.8-7.7); BASOPHIL # 0.1 TH/MM3 (0-0.2); EOSINOPHIL # 0.2 TH/MM3 (0-0.4); EOSINOPHIL % 3.6 % (0.0-4.0); HEMATOCRIT 31.2 % (35.0-46.0); HEMOGLOBIN 9.8 GM/DL (11.6-15.3); LYMPH % 33.5 % (9.0-44.0); LYMPHOCYTE # 1.9 TH/MM3 (1.0-4.8); MEAN CELL VOLUME 89.3 FL (80.0-100.0); MEAN CORPUSCULAR HGB CONC 31.3 % (32.0-36.0); MEAN PLATELET VOLUME 8.2 FL (7.0-11.0); MONO % 8.1 % (0.0-8.0); MONOCYTE # 0.5 TH/MM3 (0-0.9); NEUT % 53.8 % (16.0-70.0); PLATELET COUNT 272 TH/MM3 (150-450); RED BLOOD COUNT 3.49 MIL/MM3 (4.00-5.30); RED CELL DISTRIBUTION WIDTH 14.7 % (11.6-17.2); WHITE BLOOD COUNT 5.6 TH/MM3 (4.0-11.0)
[2017-12-23 07:32] LABS: BICARBONATE 27.3 MEQ/L (21.0-32.0); CALCIUM 8.2 MG/DL (8.5-10.1)
[2017-12-23 07:36] LABS: CREATININE 0.49 MG/DL (0.50-1.00)
[2017-12-23] MEDS: RESP: ALBUTEROL 1.25 MG/3 ML NEB (PRN) NEB (07:36)
[2017-12-23] MEDS: RESP: BUDESONIDE 0.25 MG/2 ML NEB NEB SCH (07:36)
[2017-12-23 07:39] VITALS: O2SAT 92
[2017-12-23] MEDS: HEPARIN SODIUM - SQ 10,000 UNITS/ML VIAL SQ SCH (07:57)
[2017-12-23] MEDS: ASPIRIN 325 MG TAB PO SCH (07:57)
[2017-12-23] MEDS: PANTOPRAZOLE SOD 20 MG DELAYED RELEASE TAB PO SCH (07:57)
[2017-12-23] MEDS: CLOPIDOGREL 75 MG TAB PO SCH (07:57)
[2017-12-23] MEDS: INSULIN ASPART SUPPLEMENTAL SCALE SQ SCH (07:58)
[2017-12-23] MEDS: SODIUM CHLORIDE 0.9% FLUSH 10 ML FLUSH IV FLUSH SCH (07:58)
[2017-12-23 08:12] VITALS: PULSE 67
--- NOTE | 2017-12-23 10:21 | HHI.PR ---
Subjective Remarks Follow-up TIA symptoms and tachycardia. Patient seen and examined today, walking home and much improved. All symptoms have resolved. Denies any pain or palpitations overnight. Patient is eager to get home. Eating well, denies any abdominal pain, nausea or vomiting. Objective Vitals Vital Signs Date Time Temp Pulse Resp B/P (MAP) Pulse Ox O2 Delivery O2 Flow Rate FiO2 12/23/17 07:39 92 21 12/23/17 04:00 98.3 72 20 123/66 (85) 96 12/23/17 00:00 97.6 75 20 113/58 (76) 97 12/22/17 20:20 93 Nasal Cannula 1.50 12/22/17 20:00 98.0 76 20 130/67 (88) 93 12/22/17 20:00 81 12/22/17 19:09 92.0 71 16 165/68 (100) 92 12/22/17 13:23 96.3 69 16 152/62 (92) 97 12/22/17 12:07 93 21 Result Diagram: 12/23/17 0610 12/23/17 0610 Imaging Last Impressions Head Magnetic Resonance Angiography 12/22/17 0000 Signed Impressions: Service Date/Time: Friday, December 22, 2017 13:13 - CONCLUSION: 1. 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 There is no evidence of aneurysm. Stone Soriano MD Carotid Artery Ultrasound 12/22/17 0000 Signed Impressions: Service Date/Time: Friday, December 22, 2017 09:24 - CONCLUSION: Negative examination for a hemodynamically significant carotid stenosis. Jacques Menezes MD FACR Brain MRI 12/22/17 0000 Signed Impressions: Service Date/Time: Friday, December 22, 2017 13:13 - CONCLUSION: No acute intracranial findings. Bravo Price MD Head CT [id number]/21/172158 Signed Impressions: Service Date/Time: Thursday, December 21, 2017 22:27 - CONCLUSION: Normal examination for a patient of this age. Ad Gonzalez MD Chest X-Ray [id number]/21/[id number] Signed Impressions: Service Date/Time: Thursday, December 21, 2017 22:50 - CONCLUSION: No acute cardiopulmonary abnormality is identified. Bravo Garay MD Objective Remarks GENERAL: Well-nourished, well-developed patient in NAD. SKIN: Warm and dry. No rash. HEAD: Normocephalic. Atraumatic. EYES: Pupils equal and round. No scleral icterus. No injection or drainage. ENT: No nasal bleeding or discharge. Mucous membranes pink and moist. NECK: Supple. Trachea midline. CARDIOVASCULAR: Regular rate and rhythm. S1, S2 noted. No murmur appreciated. RESPIRATORY: No accessory muscle use. Clear to auscultation. Breath sounds equal bilaterally. GASTROINTESTINAL: Abdomen soft, non-tender, nondistended. Normoactive bowel sounds x4. MUSCULOSKELETAL: No obvious deformities. Extremities without clubbing, cyanosis , or edema. NEUROLOGICAL: Awake and alert. No obvious cranial nerve deficits. Motor grossly within normal limits. 5/5 muscle strength in bilateral upper and lower extremities. Normal speech. No facial droop. PSYCHIATRIC: Appropriate mood and affect; insight and judgment normal. A/P Problem List: (1) TIA (transient ischemic attack) ICD Code: G45.9 - Transient cerebral ischemic attack, unspecified Status: Acute (2) Rapid palpitations ICD Code: R00.2 - Palpitations Status: Acute Assessment and Plan This is a pleasant 77-year-old female patient with a known medical history of COPD and history of CVA who presented to the ED with complaints of palpitations and left hand numbness. Rule out CVA versus TIA, patient with left hand numbness Head CT reviewed showing normal examination. Carotid ultrasound performed showing negative examination. MRI negative. MRA showing intracranial disease involving the left MCA 50-60% with mild stenosis involving the right posterior cerebral artery. Echo has been done and unremarkable. Normal. CBC and BMP reviewed and essentially unremarkable. TSH normal. BNP normal. UA negative. Neurology started on Plavix. Spoke with Dr. Stone Potts who is okay with discharge today. Updated on echocardiogram results and MRA. Encourage patient to stop aspirin in two days. Continue Plavix. An event monitor has been ordered for thirty days. Follow-up with cardiology and neurology upon discharge to follow-up event monitor Dysphagia noted. Tolerating by mouth diet well. PT following patient, no recommendations. Lipid panel normal Tachycardia. Resolved. Serial troponins flat. D-dimer negative on presentation. EKG reviewed showing normal sinus rhythm, controlled heart rate No arrhythmias overnight. Neurology recommending thirty day Holter monitor. Cardiology has seen patient, patient refusing beta sanaz and hypertensive medicines. Agreeable to event monitor. COPD not in exacerbation Chest x-ray reviewed showing no acute cardiopulmonary abnormality. Supplemental O2 is needed. Duo nebs scheduled and when necessary. DVT prophylaxis: SCDs. Heparin. Discharge Planning Discharge today. Sultana Braden Dec 23, 2017 10:21
[2017-12-23 10:48] LABS: CHOLESTEROL/ HDL RATIO 2.23 RATIO
--- NOTE | 2017-12-26 17:57 | HM ---
Date Performed: 12/22/2017 Time Performed: 20:20:00 HOOKUP DATE: 12/22/17 08:20:00 PM Wed ANALYSIS START TIME: 12/22/2017 8:25:00 PM ANALYSIS END TIME: 12/23/2017 8:29:00 PM PATIENT AGE: 77 PATIENT HEIGHT: 62 PATIENT WEIGHT: 175 DRUG LIST: ROOM 8311 PATIENT DIAGNOSIS: PALPITATIONS TIA TEST NARRATIVE: The patient's average heart rate was 77 BPM. No episodes of tachycardia wer e noted. No episodes of bradycardia were noted. No pauses exceeding 2.0 seconds were noted. 1 ventricular ectopics, which represented < 1% of the total beat count, were noted. The highest vent ricular ectopic frequency occurred from 11:00 PM to 12:00 AM Lanie. During this time 1 VE(s) occurred. Ventricular ectopics were observed as 1 isolated beat(s) only. No couplets or runs were noted. 63 supraventricular ectopics, which represented < 1% of the total beat count, were noted. The highe st supraventricular ectopic frequency occurred from 07:00 AM to 08:00 AM Lanie. During this time 13 SV E(s) occurred. No episodes of ST depression (defined as -1.0 mm or more) were noted in channel 1. No episodes of ST depression (defined as -1.0 mm or more) were noted in channel 2. No episodes of ST depression (defined as -1.0 mm or more) were noted in channel 3. NO DIARY RETURNED BY PATIENT TEST INTERPRETATION: 1) Underlying Sinus rhythm 2) Rare PAC/PVC 3) No arrhythmias noted 4) No diary returned to review Signed by : Coy Aden
== END 2017-12-23 11:42 | disposition home or self-care (01) ==
LOC: PHED 21:35 → PHEDA 12-22 00:06 → PH3B 12-22 01:08
PROVIDERS: ADMIT Hospitalist; ATTEND Hospitalist
DX: I66.21 Occlusion and stenosis of right posterior cerebral artery (principal); K21.9 Gastro-esophageal reflux disease without esophagitis; J43.9 Emphysema, unspecified; E03.9 Hypothyroidism, unspecified; R13.10 Dysphagia, unspecified; Z86.61 Personal history of infections of the central nervous system; Z86.73 Personal history of transient ischemic attack (TIA), and cerebral infarction without residual deficits; Z87.891 Personal history of nicotine dependence; Z90.710 Acquired absence of both cervix and uterus
CPT/HCPCS: 70450; 70544; 70551; 71045; 80048; 80053; 80061; 80307; 81001; 82550; 82948; 83036; 83605; 83735; 83880; 84443; 84484; 85025; 85379; 85610; 85730; 93005; 93225; 93226; 93306; 93880; 94640; 94664; 96361; 96372; 96374; 96375; 97162; 99285; G0378; G8987; G8988; J1644; J2060; J2405; J7030; J7613; J7626

== ENCOUNTER 2018-01-03 21:08 | Inpatient (IN) | payer OTHER, MEDICARE ==
[~2018-01-03] VITALS: Ht 157.5 cm; Wt 86.5 kg
[~2018-01-03 21:08] MED LIST changes: +ALBU1.25 NEB; +ASA325 PO; -ASPI81 PO; +BUDE0.25 NEB; -OMEP20TA OR; +OMEP20TA93 PO; +PLAV75TA29 PO; +TEMA15CA PO
[2018-01-03 21:12] VITALS: O2SAT 95
[2018-01-03] MEDS ORDERED: ceFAZolin 2 GM PREMIX 50 ML ONE (21:18)
[2018-01-03] MEDS ORDERED: MORPHINE SULFATE 4 MG/ML INJ ONE ×2 (21:18→21:27)
[2018-01-03] MEDS ORDERED: ONDANSETRON HCL 4 MG/2 ML VIAL ONE (21:18)
[2018-01-03] MEDS ORDERED: DIPHTH/TETANUS/ACEL PERTUSSIS (BOOSTER) 0.5 ML VIAL/PFS IM ONE ×2 (21:19→21:58)
[2018-01-03 21:22] VITALS: O2SAT 95
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
[2018-01-03 21:51] LABS: AUTOMATED NEUTROPHIL # 6.8 TH/MM3 (1.8-7.7); BASOPHIL # 0.1 TH/MM3 (0-0.2); BASOPHIL % 0.8 % (0.0-2.0); EOSINOPHIL # 0.1 TH/MM3 (0-0.4); EOSINOPHIL % 1.1 % (0.0-4.0); HEMATOCRIT 35.4 % (35.0-46.0); HEMOGLOBIN 11.5 GM/DL (11.6-15.3); LYMPH % 26.7 % (9.0-44.0); LYMPHOCYTE # 2.8 TH/MM3 (1.0-4.8); MEAN CELL VOLUME 89.4 FL (80.0-100.0); MEAN CORPUSCULAR HEMOGLOBIN 29.1 PG (27.0-34.0); MEAN CORPUSCULAR HGB CONC 32.6 % (32.0-36.0); MONO % 7.2 % (0.0-8.0); MONOCYTE # 0.8 TH/MM3 (0-0.9); NEUT % 64.2 % (16.0-70.0); PLATELET COUNT 322 TH/MM3 (150-450); RED BLOOD COUNT 3.96 MIL/MM3 (4.00-5.30); RED CELL DISTRIBUTION WIDTH 15.4 % (11.6-17.2); WHITE BLOOD COUNT 10.6 TH/MM3 (4.0-11.0)
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
[2018-01-03] MEDS ORDERED: ceFAZolin 2 GM PREMIX 50 ML IV STA (21:58)
[2018-01-03] MEDS ORDERED: ONDANSETRON HCL 4 MG/2 ML VIAL IV PUSH ONE (22:00)
[2018-01-03] MEDS ORDERED: MORPHINE SULFATE 4 MG/ML INJ IV PUSH ONE (22:00)
[2018-01-03] MEDS ORDERED: IOHEXOL 350 MG/ML 10 ML VIAL (for RAD DIAG) IVCONTRAST ONE (22:05)
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
[2018-01-03] MEDS: SODIUM CHLOR 0.9% 1000 ML INJ 1,000 ML IV SCH (22:15)
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
[2018-01-03] MEDS: LACTATED RINGER'S 1000 ML INJ 1,000 ML IV SCH (23:34)
[2018-01-03] MEDS ORDERED: CHLORHEXIDINE GLUCONATE 2 % 1 PACK (2 CLOTHS) TOP PRN (23:45)
[2018-01-03] MEDS ORDERED: MISCELLANEOUS NURSING INFORMATION XX SCH (23:45)
[2018-01-04] VITALS (7 sets, daily range): BP systolic 139–178; BP diastolic 62–90; PULSE 85–106; RESP 18–20; TEMP 97–99.9; O2SAT 90–95
[2018-01-04] MEDS ORDERED: ACETAMINOPHEN 1000 MG/100 ML 100 ML IV SCH
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
[2018-01-04] MEDS ORDERED: MORPHINE SULFATE 4 MG/ML INJ IV PUSH ONE (00:30)
[2018-01-04] MEDS ORDERED: INSULIN HUMAN REGULAR 1,000 UNITS/10 ML VIAL SQ PRN (00:45)
[2018-01-04] MEDS ORDERED: LACTATED RINGER'S 1000 ML IV PRN (00:45)
[2018-01-04] MEDS ORDERED: METOPROLOL TARTRATE 25 MG TAB PO PRN (00:45)
[2018-01-04] MEDS ORDERED: SODIUM CHLORID 0.9% 500 ML IV PRN (00:45)
[2018-01-04] MEDS ORDERED: POVIDONE IODINE 5% (ANTISEPSIS KIT) 4 APPLICATIONS EACH NARE PRN (00:45)
[2018-01-04] MEDS ORDERED: CHLORHEXIDINE GLUCONATE 2 % 1 PACK (2 CLOTHS) TOPICAL PRN (00:45)
[2018-01-04] MEDS: MORPHINE SULFATE 2 MG/ML INJ IV PUSH PRN ×2 (03:15→06:27)
[2018-01-04] MEDS ORDERED: CHLORHEXIDINE GLUCONATE 2 % 1 PACK (2 CLOTHS) TOP SCH (04:00)
--- NOTE | 2018-01-04 08:17 | HHI.PR ---
Addendum to Inpatient Note Addendum Reason: Additional Documentation Additional Information Thanks for taking care of her! I ordered her inhalers for her. I have been using [facility] if needed for medical care. Her medical issues have really just been COPD. Ghislaine Brennan MD Jan 04, 2018 08:17
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
[2018-01-04] MEDS: FAMOTIDINE 20 MG TAB PO SCH ×2 (09:00→19:58)
[2018-01-04] MEDS ORDERED: RESP: ALBUTEROL 0.63 MG/3 ML NEB (PRN) NEB (09:00)
[2018-01-04] MEDS: TIOTROPIUM BROMIDE 18 MCG INH INH SCH (09:00)
[2018-01-04] MEDS: DOCUSATE SODIUM 100 MG CAP PO SCH ×2 (09:00→19:57)
[2018-01-04 09:30] LABS: AUTOMATED NEUTROPHIL # 7.8 TH/MM3 (1.8-7.7); BASOPHIL % 0.3 % (0.0-2.0); EOSINOPHIL % 0.1 % (0.0-4.0); HEMOGLOBIN 9.5 GM/DL (11.6-15.3); LYMPH % 9.2 % (9.0-44.0); LYMPHOCYTE # 0.9 TH/MM3 (1.0-4.8); MEAN CORPUSCULAR HEMOGLOBIN 29.2 PG (27.0-34.0); MEAN CORPUSCULAR HGB CONC 32.8 % (32.0-36.0); MEAN PLATELET VOLUME 7.9 FL (7.0-11.0); MONO % 9.3 % (0.0-8.0); MONOCYTE # 0.9 TH/MM3 (0-0.9); NEUT % 81.1 % (16.0-70.0); PLATELET COUNT 292 TH/MM3 (150-450); RED BLOOD COUNT 3.26 MIL/MM3 (4.00-5.30); RED CELL DISTRIBUTION WIDTH 15.7 % (11.6-17.2); WHITE BLOOD COUNT 9.6 TH/MM3 (4.0-11.0)
[2018-01-04 09:50] LABS: BICARBONATE 30.2 MEQ/L (21.0-32.0); CALCIUM 8.7 MG/DL (8.5-10.1); CREATININE 0.61 MG/DL (0.50-1.00)
[2018-01-04] MEDS ORDERED: APREPITANT 40 MG CAP ONE (09:53)
[2018-01-04] MEDS ORDERED: ceFAZolin 2 GM PREMIX 50 ML ONE (10:00)
[2018-01-04] MEDS ORDERED: VANCOMYCIN HCL 1000 MG VIAL ONE (10:00)
[2018-01-04] MEDS ORDERED: RESP: BUDESONIDE 0.25 MG/2 ML NEB NEB ONE (10:00)
[2018-01-04] MEDS ORDERED: RESP: LEVALBUTEROL HYDROCHLORIDE 0.63 MG/3 ML NEB (SCH) NEB ONE (10:00)
[2018-01-04] MEDS ORDERED: PROPOFOL 500 MG/50 ML INJ 100 ML ONE (10:01)
[2018-01-04] MEDS ORDERED: GENTAMICIN SULFATE 80 MG/2 ML VIAL ONE (10:01)
[2018-01-04] MEDS ORDERED: KETAMINE HCL 500 MG/5 ML VIAL ONE (10:01)
[2018-01-04] MEDS ORDERED: WALKER/ADULT/FO1 MIS (10:59)
[2018-01-04] MEDS ORDERED: WHEEMIS3 (10:59)
[2018-01-04] MEDS ORDERED: XARE10TA PO (10:59)
[2018-01-04] MEDS ORDERED: HYDR-3583 PO (10:59)
[2018-01-04] MEDS ORDERED: LACTATED RINGER'S 1000 ML INJ 1,000 ML IV ONE (12:00)
[2018-01-04] MEDS ORDERED: PROPOFOL 200 MG/20 ML AMP IV ONE (12:00)
[2018-01-04] MEDS ORDERED: ePHEDrine/NS 25 MG/5 ML SYRINGE IV ONE (12:00)
[2018-01-04] MEDS ORDERED: DEXAMETHASONE SOD PHOS 4 MG/ML VIAL IV ONE (12:00)
[2018-01-04] MEDS ORDERED: PHENYLEPH/NS 1000 MCG/10 ML SYR IV ONE (12:00)
[2018-01-04] MEDS ORDERED: ONDANSETRON HCL 4 MG/2 ML VIAL IV ONE (12:00)
[2018-01-04] MEDS ORDERED: SUCCINYLCHOLINE CHLORIDE 200 MG/10 ML VIAL IV ONE (12:00)
[2018-01-04] MEDS ORDERED: LIDOCAINE HCL 1% PF 5 ML SYRINGE OTHER ONE (12:00)
[2018-01-04] MEDS ORDERED: LACTATED RINGER'S 1000 ML INJ 1,000 ML IV SCH (12:11)
[2018-01-04] MEDS ORDERED: diphenhydrAMINE HCL 25 MG CAP PO PRN (12:15)
[2018-01-04] MEDS ORDERED: Post-op Orders (for Pharmacy) XX ONE (12:15)
--- NOTE | 2018-01-04 12:18 | PD.OP ---
cc: Boyd Hood MD Operative Report Date of Surgery: Jan 04, 2018 Preoperative Diagnosis: Displaced left tibia shaft fracture, left ankle bimalleolar fracture Postoperative Diagnosis: Procedure: Reduction and intramedullary nail fixation left tibia, open reduction total fixation left ankle medial malleolus Anesthesia: Gen. Surgeon: Boyd Hood Tugboat Captain(s): HIRAL Carlos PA-C The surgical procedure was assisted by my physician orthodontic assistant. My P.A. presence was necessary throughout this case for the manipulation and positioning of the surgical extremity. My P.A. was assisting me throughout the duration of this procedure. The skill set of a physician orthodontic assistant was medically necessary to complete this procedure. During the surgical case the surgical garment fitter was working at the back table and the physician orthodontic assistant was directly assisting me. Operation and Findings: Implants: ITS [10]mm x [315]mm tibial nail Plan of activity: Nonweightbearing left leg Patient was seen and examined preoperatively. An informed consent was obtained from patient after detailed discussion of risk and benefits. Risks of surgery include bleeding, infection, painful hardware, nonunion, malunion, leg length discrepancy, need for hardware removal, and medical complications associated with anesthesia including blood clots, stroke, heart attack, and were discussed. Operative site was marked. Patient was brought to the operating room placed on or table. Patient received IV antibiotics and was given IV sedation GETA. Left leg was prepped with alcohol Hibiclens and draped in usual sterile fashion. Timeout procedure was performed Procedure began with the left ankle. A 3 cm incision was made over the medial malleolus. Subcutaneous tissue dissected with Bovie. Fracture site was visualized. Fracture site was cleaned with a curette. Fracture was now reduced. A K wire was used to hold provisional fixation. A 3.5 cortical screw was now placed from medial to lateral. Good compression was obtained. A second screw was now placed from inferior to superior. Fluoroscopy confirmed appropriate hardware placement. Care was taken to place screws into position with a would not interfere with intramedullary nail. Next attention was turned towards reduction of the tibial shaft fracture. 2 small incisions were made around the fracture site. A percutaneous clamp was placed. Traction was applied. Fracture was reduced. There was comminution of the fracture. The fracture reduced and excellent alignment was achieved. Fracture clamp was used to aid in reduction. Next a 3 cm incision was made proximal to the patella. Quadriceps tendon was split in line with fibers. Cannulas were placed in the patellofemoral joint to protect the articular surface at all times. A guidepin was placed into the tibia and advanced in the tibial canal. Fluoroscopy was used to confirm appropriate guidepin placement. An opening reamer was used to open the tibial canal. A ball-tipped guidewire was advanced down the tibial canal. Guidepin was passed across the fracture site into the center of the distal tibia. Fluoroscopy confirmed guidepin placement. The nail length was now measured. The fracture was now held in a reduced position and the canal was reamed. The canal was reamed up to appropriate size. A ITS nail was now selected. Next the nail was fully seated. Using perfect [place] technique 3 distal interlocking screws were placed. Using the insertion handle as a guide 2 proximal interlocking screws were placed. Fluoroscopy confirmed excellent of fracture with well-placed hardware. Next attention was turned back to the ankle. The lateral malleolus was visualized under fluoroscopy. The ankle was stressed. There was no widening of the medial clear space. The syndesmosis appeared to be stable. The fibula fracture is well aligned. At this point a lateral malleolus fracture will be treated closed. Incisions were thoroughly irrigated. The medial malleolus incision was closed with 3-0 Vicryl and 3-0 nylon. The knee joint was thoroughly irrigated with sterile saline. Fascia was closed with #1 Vicryl, subcutaneous tissues closed with 3-0 Vicryl and skin was closed with bharath. Sterile dressings were applied. Patient was awakened and transferred to recovery in stable condition. Boyd Hood MD Jan 04, 2018 12:18
[2018-01-04] MEDS ORDERED: *morphine SULFATE 8 MG/ML PERIprocedure ONLY ONE (12:47)
[2018-01-04] MEDS ORDERED: MIDAZOLAM HCL 2 MG/2 ML VIAL ONE (12:54)
[2018-01-04] MEDS: CALCIUM/VITAMIN D 250 MG/125 U TAB PO SCH ×2 (13:00→18:00)
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
[2018-01-04] MEDS ORDERED: DO NOT ADM ANY ANTICOAGULANT DRUGS PRN (15:00)
--- NOTE | 2018-01-04 15:10 | RADRPT ---
EXAM DATE/TIME: 01/04/2018 11:57 [facility] COMPARISON: TIBIA/FIBULA LEFT (AP/LAT), January 03, 2018, 21:16. INDICATIONS : Left tibia fracture repair. OR. MEDICAL HISTORY : None. SURGICAL HISTORY : None. ENCOUNTER: Initial ACUITY: 1 day PAIN SCORE: Non-responsive. LOCATION: Left tibia FINDINGS: 7 images were recorded digital in the operating room using C-arm during placement of tibial intramedu llary kyle. There are 2 proximal and 3 distal intercalated screws. There are also 2 screws traversin g the distal medial tibia. CONCLUSION: Intraoperative images. Fausto Berumen MD on January 04, 2018 at 15:08 Board Certified Radiologist. This report was verified electronically.
[2018-01-04] MEDS: ACETAMINOPHEN/HYDROcodone 325 MG/10 MG TAB PO PRN ×2 (18:04→23:33)
[2018-01-04] MEDS ORDERED: DOCU1CAP39 PO (19:25)
[2018-01-04] MEDS: RESP: BUDESONIDE 0.25 MG/2 ML NEB NEB SCH (19:29)
[2018-01-04] MEDS: MORPHINE SULFATE 4 MG/ML INJ IV PUSH PRN (19:58)
[2018-01-04] MEDS: VANCOMYCIN INJ 1,000 MG in SODIUM CHLOR 0.9% 250 ML INJ 250 ML IV SCH (22:01)
[2018-01-04] MEDS: LACTATED RINGER'S 1000 ML INJ 1,000 ML IV SCH (22:06)
[2018-01-04] MEDS: SODIUM CHLOR 0.9% 1000 ML INJ 1,000 ML IV SCH (22:15)
[2018-01-04] MEDS: ceFAZolin 2 GM PREMIX 50 ML IV SCH (23:34)
[2018-01-05] VITALS (8 sets, daily range): BP systolic 134–197; BP diastolic 61–79; PULSE 82–93; RESP 17–19; TEMP 98–100.2; O2SAT 90–95
[2018-01-05] MEDS: ONDANSETRON HCL 4 MG/2 ML VIAL IV PUSH PRN (03:51)
[2018-01-05] MEDS: ACETAMINOPHEN/HYDROcodone 325 MG/10 MG TAB PO PRN ×4 (03:52→22:54)
[2018-01-05 05:12] LABS: AUTOMATED NEUTROPHIL # 5.3 TH/MM3 (1.8-7.7); BASOPHIL % 0.3 % (0.0-2.0); HEMATOCRIT 23.4 % (35.0-46.0); HEMOGLOBIN 7.7 GM/DL (11.6-15.3); LYMPH % 14.4 % (9.0-44.0); MEAN CELL VOLUME 90.1 FL (80.0-100.0); MEAN CORPUSCULAR HEMOGLOBIN 29.4 PG (27.0-34.0); MEAN CORPUSCULAR HGB CONC 32.7 % (32.0-36.0); MEAN PLATELET VOLUME 8.2 FL (7.0-11.0); MONO % 12.7 % (0.0-8.0); MONOCYTE # 0.9 TH/MM3 (0-0.9); NEUT % 72.6 % (16.0-70.0); PLATELET COUNT 218 TH/MM3 (150-450); RED CELL DISTRIBUTION WIDTH 15.4 % (11.6-17.2); WHITE BLOOD COUNT 7.3 TH/MM3 (4.0-11.0)
[2018-01-05 05:39] LABS: ALBUMIN 2.8 GM/DL (3.4-5.0); ALT (GPT) 41 U/L (10-53); AST (GOT) 27 U/L (15-37); BICARBONATE 30.1 MEQ/L (21.0-32.0); BLOOD UREA NITROGEN 16 MG/DL (7-18); CALCIUM 8.3 MG/DL (8.5-10.1); CHLORIDE 105 MEQ/L (98-107); CREATININE 0.51 MG/DL (0.50-1.00); GLOMERULAR FILTRATION RATE 117 ML/MIN (>89); GLUCOSE,RANDOM 124 MG/DL (74-106); SODIUM (NA) 142 MEQ/L (136-145)
[2018-01-05 05:43] LABS: ALKALINE PHOSPHATASE 62 U/L (45-117); TOTAL BILIRUBIN ADULT 0.3 MG/DL (0.2-1.0); TOTAL PROTEIN 5.9 GM/DL (6.4-8.2)
--- NOTE | 2018-01-05 06:53 | PD.ORT.PN ---
Subjective Subjective Remarks POD 1 s/p IMN and ORIF left tibia and bimalleolar ankle fx reports significant pain overnight. states not getting breathing treatment she normally gets at home. Objective Vitals Vital Signs Date Time Temp Pulse Resp B/P (MAP) Pulse Ox O2 Delivery O2 Flow Rate FiO2 01/05/18 04:00 98.5 86 18 136/61 (86) 95 01/05/18 00:00 98.9 82 18 159/68 (98) 90 01/04/18 20:00 98.9 94 18 153/69 (97) 90 01/04/18 19:42 92 Nasal Cannula 1.50 01/04/18 19:15 18 01/04/18 16:00 98.3 85 20 165/73 (103) 93 01/04/18 14:15 85 16 159/70 (99) 95 Nasal Cannula 2 01/04/18 14:00 98.5 86 16 152/72 (98) 96 Nasal Cannula 2 01/04/18 13:45 88 18 165/77 (106) 97 Nasal Cannula 2 01/04/18 13:30 92 18 161/77 (105) 97 Nasal Cannula 3 01/04/18 13:15 96 20 167/75 (105) 95 Nasal Cannula 3 01/04/18 13:00 94 12 155/68 (97) 95 Nasal Cannula 3 01/04/18 12:43 98.3 93 16 157/67 (97) 94 Nasal Cannula 3 01/04/18 08:00 98.8 101 18 139/62 (87) 95 I/O 01/04/18 01/04/18 01/04/18 01/05/18 01/05/18 01/05/18 07:00 15:00 23:00 07:00 15:00 23:00 Intake Total 1650 ml 320 ml 881 ml Output Total 200 ml 200 ml Balance -200 ml 1450 ml 320 ml 881 ml Intake Oral 0 ml 320 ml IV Total 881 ml Other 1650 ml Output Urine Total 200 ml Estimated Blood Loss 200 ml # Voids 3 1 3 # Bowel Movements 0 Result Diagram: 01/05/1841901/05/18 0420 Objective Remarks LLE: dressings clean and dry. intact. NVI. +splint Assessment & Plan Assessment and Plan 1) Left Tibial shaft and bimalleolar fractures s/p IMN and perc fixation of ankle fxs - POD 1 -NWB -maintain splint at all times -elevate -medical team to manage breathing treatments -DVT prophylaxis -CM for DC planning to SNF. Pt lives in RV and not safe to go home -f/u with Sana or PA in 2 weeks Chad Munoz PA/Civil Preparedness Training Officer PA Jan 05, 2018 06:53
[2018-01-05] MEDS: TIOTROPIUM BROMIDE 18 MCG INH INH SCH (09:53)
[2018-01-05] MEDS: DOCUSATE SODIUM 100 MG CAP PO SCH ×2 (09:54→19:38)
[2018-01-05] MEDS: CALCIUM/VITAMIN D 250 MG/125 U TAB PO SCH ×3 (09:54→18:11)
[2018-01-05] MEDS: FAMOTIDINE 20 MG TAB PO SCH ×2 (09:54→19:38)
[2018-01-05] MEDS: VANCOMYCIN INJ 1,000 MG in SODIUM CHLOR 0.9% 250 ML INJ 250 ML IV SCH (09:55)
[2018-01-05] MEDS: ceFAZolin 2 GM PREMIX 50 ML IV SCH ×2 (10:05→18:12)
[2018-01-05] MEDS: RESP: BUDESONIDE 0.25 MG/2 ML NEB NEB SCH ×2 (10:20→20:16)
[2018-01-05] MEDS ORDERED: KETOROLAC TROMETHAMINE 30 MG/ML (IVP) VIAL IV PUSH SCH (12:00)
[2018-01-05] MEDS: POLYETHYLENE GLYCOL 17 GM PKG PO SCH (12:36)
[2018-01-05] MEDS: ENOXAPARIN SODIUM 40 MG/0.4 ML SYRINGE SQ SCH (12:37)
[2018-01-05] MEDS ORDERED: ENALAPRILAT 1.25 MG/ML VIAL IV PUSH PRN (13:00)
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
[2018-01-05] MEDS: MORPHINE SULFATE 4 MG/ML INJ IV PUSH PRN (19:40)
[2018-01-06] VITALS (15 sets, daily range): BP systolic 139–169; BP diastolic 62–72; PULSE 82–104; RESP 16–22; TEMP 97.6–99.5; O2SAT 80–100
[2018-01-06] MEDS: ACETAMINOPHEN/HYDROcodone 325 MG/10 MG TAB PO PRN ×4 (00:58→19:54)
[2018-01-06] MEDS: ceFAZolin 2 GM PREMIX 50 ML IV SCH ×2 (01:00→08:43)
[2018-01-06 06:25] LABS: HEMATOCRIT 19.5 % (35.0-46.0); HEMOGLOBIN 6.5 GM/DL (11.6-15.3)
--- NOTE | 2018-01-06 06:41 | PD.ORT.PN ---
Subjective Subjective Remarks Aimee is awake and alert. Pain is relatively well controlled. She had difficulty standing and weightbearing on her right leg yesterday. She complains of lateral ankle pain. Objective Vitals Vital Signs Date Time Temp Pulse Resp B/P (MAP) Pulse Ox O2 Delivery O2 Flow Rate FiO2 01/06/18 06:07 20 01/06/18 04:00 97.9 83 20 146/64 (91) 93 01/06/18 00:00 97.6 88 19 151/67 (95) 91 01/05/18 20:25 18 01/05/18 20:00 100.2 85 19 134/64 (87) 93 01/05/18 16:27 92 Nasal Cannula 2.00 01/05/18 16:00 98.0 88 17 153/72 (99) 93 01/05/18 12:00 99.0 90 17 178/75 (109) 92 01/05/18 09:37 93 Nasal Cannula 2.00 01/05/18 08:00 98.3 93 17 197/79 (118) 90 I/O 01/05/18 01/05/18 01/05/18 01/06/18 01/06/18 01/06/18 07:00 15:00 23:00 07:00 15:00 23:00 Intake Total 881 ml 2180 ml 200 ml Balance 881 ml 2180 ml 200 ml Intake Oral 1440 ml 200 ml IV Total 881 ml 740 ml # Voids 3 6 2 # Bowel Movements 0 0 Result Diagram: 01/06/18 0431 01/05/18 0420 Objective Remarks LLE: dressings clean and dry. intact. NVI. +splint Right lower extremity: No pain with hip or knee motion. Bruising and mild swelling over the lateral ankle. Tender to palpation over the distal fibula. Sensation intact right foot. Dorsalis pedis pulses palpable. Assessment & Plan Assessment and Plan 1) Left Tibial shaft and bimalleolar fractures s/p IMN and perc fixation of ankle fxs - POD 1 -NWB--left leg -maintain splint at all times -elevate -medical team to manage breathing treatments -DVT prophylaxis -CM for DC planning to SNF. Pt lives in and not safe to go home -f/u with Hood or PA in 2 weeks 2) right ankle x-rays reveal nondisplaced right distal fibular fracture. Orthotec for fracture boot Weight-bear as tolerated right leg with fracture boot on Boyd Hood MD Jan 06, 2018 06:41
[2018-01-06] MEDS ORDERED: SODIUM CHLOR 0.9% 250 ML INJ 250 ML IV ONE (06:45)
[2018-01-06] MEDS: RESP: BUDESONIDE 0.25 MG/2 ML NEB NEB SCH ×2 (08:35→20:00)
[2018-01-06] MEDS: TIOTROPIUM BROMIDE 18 MCG INH INH SCH (08:43)
[2018-01-06] MEDS: FAMOTIDINE 20 MG TAB PO SCH ×2 (08:44→19:54)
[2018-01-06] MEDS: CALCIUM/VITAMIN D 250 MG/125 U TAB PO SCH ×3 (08:44→17:02)
[2018-01-06] MEDS: POLYETHYLENE GLYCOL 17 GM PKG PO SCH (08:44)
[2018-01-06] MEDS: DOCUSATE SODIUM 100 MG CAP PO SCH ×2 (08:44→19:54)
[2018-01-06] MEDS: ONDANSETRON HCL 4 MG/2 ML VIAL IV PUSH PRN (09:24)
[2018-01-06] MEDS ORDERED: Custom Consult Pharmacy 1 EA OTHER SCH (11:15)
[2018-01-06] MEDS ORDERED: RESP: LEVALBUTEROL HYDROCHLORIDE 0.63 MG/3 ML NEB (SCH) NEB ONE (11:30)
[2018-01-06] MEDS: ENOXAPARIN SODIUM 40 MG/0.4 ML SYRINGE SQ SCH (12:36)
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
--- NOTE | 2018-01-06 14:27 | RADRPT ---
EXAM DATE/TIME: 01/06/2018 13:26 [facility] COMPARISON: CHEST SINGLE AP, January 03, 2018, 21:16. INDICATIONS : Short of breath MEDICAL HISTORY : None. SURGICAL HISTORY : None. ENCOUNTER: Subsequent ACUITY: 2 days PAIN SCORE: 0/10 LOCATION: chest FINDINGS: There are some patchy areas of opacity in the left lower lung suggesting non-consolidative infiltrate s. The right lung is clear. The heart is normal in size. CONCLUSION: Patchy left lower lobe infiltrates. Fausto Berumen MD on January 06, 2018 at 14:25 Board Certified Radiologist. This report was verified electronically.
[2018-01-06] MEDS: RESP: LEVALBUTEROL HYDROCHLORIDE 0.63 MG/3 ML NEB (SCH) NEB ×2 (15:48→20:57)
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
[2018-01-07] VITALS (8 sets, daily range): BP systolic 113–181; BP diastolic 56–118; PULSE 68–94; RESP 13–27; TEMP 98.5–98.9; O2SAT 94–97
[2018-01-07] MEDS: ACETAMINOPHEN/HYDROcodone 325 MG/10 MG TAB PO PRN ×3 (00:26→12:27)
[2018-01-07 03:38] LABS: AUTOMATED NEUTROPHIL # 6.3 TH/MM3 (1.8-7.7); BASOPHIL # 0.1 TH/MM3 (0-0.2); BASOPHIL % 0.8 % (0.0-2.0); EOSINOPHIL # 0.1 TH/MM3 (0-0.4); EOSINOPHIL % 1.6 % (0.0-4.0); HEMOGLOBIN 8.7 GM/DL (11.6-15.3); LYMPH % 15.9 % (9.0-44.0); LYMPHOCYTE # 1.4 TH/MM3 (1.0-4.8); MEAN CELL VOLUME 86.3 FL (80.0-100.0); MEAN CORPUSCULAR HEMOGLOBIN 28.8 PG (27.0-34.0); MEAN CORPUSCULAR HGB CONC 33.3 % (32.0-36.0); MEAN PLATELET VOLUME 7.8 FL (7.0-11.0); MONO % 10.1 % (0.0-8.0); MONOCYTE # 0.9 TH/MM3 (0-0.9); NEUT % 71.6 % (16.0-70.0); PLATELET COUNT 207 TH/MM3 (150-450); RED BLOOD COUNT 3.02 MIL/MM3 (4.00-5.30); RED CELL DISTRIBUTION WIDTH 16.9 % (11.6-17.2); WHITE BLOOD COUNT 8.7 TH/MM3 (4.0-11.0)
[2018-01-07 03:58] LABS: BICARBONATE 35.1 MEQ/L (21.0-32.0); CALCIUM 8.2 MG/DL (8.5-10.1); CREATININE 0.39 MG/DL (0.50-1.00)
[2018-01-07] MEDS: RESP: LEVALBUTEROL HYDROCHLORIDE 0.63 MG/3 ML NEB (SCH) NEB ×2 (04:38→08:50)
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
[2018-01-07] MEDS: FAMOTIDINE 20 MG TAB PO SCH (08:21)
[2018-01-07] MEDS: CALCIUM/VITAMIN D 250 MG/125 U TAB PO SCH ×2 (08:21→12:26)
[2018-01-07] MEDS: MORPHINE SULFATE 4 MG/ML INJ IV PUSH PRN ×2 (08:21→14:09)
[2018-01-07] MEDS: DOCUSATE SODIUM 100 MG CAP PO SCH (08:21)
[2018-01-07] MEDS: POLYETHYLENE GLYCOL 17 GM PKG PO SCH (08:22)
[2018-01-07] MEDS: RESP: BUDESONIDE 0.25 MG/2 ML NEB NEB SCH (08:50)
--- NOTE | 2018-01-07 09:24 | RADRPT ---
EXAM DATE/TIME: 01/07/2018 08:44 [facility] COMPARISON: US CAROTID ARTERIES, December 22, 2017, 9:24. INDICATIONS : Desaturation. Possible deep vein thrombosis. MEDICAL HISTORY : Chronic obstructive pulmonary disease. Transischemic attack. CVA. SURGICAL HISTORY : Tonsillectomy.Cholecystectomy. Hysterectomy.Cardiac catheterization. Knee surgery. ENCOUNTER: Initial ACUITY: 1 day PAIN SCORE: 0/10 LOCATION: Bilateral legs. TECHNIQUE: Venous ultrasound of the left and right leg was performed from the inguinal ligament to the proximal calf. Real-time, color Doppler and spectral tracing, compression and augmentation techniques were us ed. FINDINGS: RIGHT LEG: There is normal compressibility of the deep venous system from the inguinal region to the proximal ca lf. No echogenic clot is seen in the lumen of the common femoral, femoral, popliteal, and posterior tibial veins. There is a normal response of the venous system to proximal and distal augmentation an d respiration. LEFT LEG: There is normal compressibility of the deep venous system in the upper leg. The Distal cannot be asse ssed due to the patient's splint. No echogenic clot is seen in the lumen of the common femoral, femor al, popliteal, and posterior tibial veins. There is a normal response of the venous system to proxim al and distal augmentation and respiration. CONCLUSION: 1. No DVT identified. 2. The distal left leg from the knee down cannot be assessed due to the patient's splint. Juan Menezes MD on January 07, 2018 at 9:21 Board Certified Radiologist. This report was verified electronically.
[2018-01-07] MEDS: ENOXAPARIN SODIUM 40 MG/0.4 ML SYRINGE SQ SCH (10:24)
[2018-01-07] MEDS ORDERED: LISINOPRIL 20 MG TAB PO SCH (11:00)
[2018-01-07] MEDS ORDERED: LISI-515 PO (12:36)
[2018-01-07] MEDS ORDERED: RESP: BUDESONIDE 0.5 MG/2 ML NEB NEB SCH (20:00)
[2018-01-08] MEDS ORDERED: RESP: LEVALBUTEROL HYDROCHLORIDE 0.63 MG/3 ML NEB (PRN) NEB (12:00)
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
== END 2018-01-07 14:59 | DRG 493 ==
LOC: NEPI 21:08 → NEDA 23:08 → N07A 01-04 00:38 → N03A 01-06 15:36
PROVIDERS: ADMIT Surgery Trauma Surgery; ATTEND Surgery Trauma Surgery
PROC: 0QSH04Z Reposition Left Tibia with Internal Fixation Device, Open Approach (ICD-10-PCS; 2018-01-04)
PROC: 0QSH06Z Reposition Left Tibia with Intramedullary Internal Fixation Device, Open Approach (ICD-10-PCS; principal; 2018-01-04 10:33)
PROC: 0QSK04Z Reposition Left Fibula with Internal Fixation Device, Open Approach (ICD-10-PCS; 2018-01-04 10:33)
PROC: 30233N1 Transfusion of Nonautologous Red Blood Cells into Peripheral Vein, Percutaneous Approach (ICD-10-PCS; 2018-01-06)
DX: S82.842A Displaced bimalleolar fracture of left lower leg, initial encounter for closed fracture (principal); I69.351 Hemiplegia and hemiparesis following cerebral infarction affecting right dominant side; Z99.81 Dependence on supplemental oxygen; S82.202A Unspecified fracture of shaft of left tibia, initial encounter for closed fracture; S82.192A Other fracture of upper end of left tibia, initial encounter for closed fracture; I10 Essential (primary) hypertension; D64.9 Anemia, unspecified; S00.03XA Contusion of scalp, initial encounter; K21.9 Gastro-esophageal reflux disease without esophagitis; J44.9 Chronic obstructive pulmonary disease, unspecified; E05.90 Thyrotoxicosis, unspecified without thyrotoxic crisis or storm; R09.02 Hypoxemia; M19.90 Unspecified osteoarthritis, unspecified site; V29.88XA Motorcycle rider (driver) (passenger) injured in other specified transport accidents, initial encounter; Y92.410 Unspecified street and highway as the place of occurrence of the external cause; Z87.891 Personal history of nicotine dependence
CPT/HCPCS: 29125; 36430; 36600; 70450; 71045; 71260; 72125; 72170; 73590; 73610; 73620; 73700; 74177; 76000; 80048; 80053; 80307; 82805; 85014; 85018; 85025; 85384; 85610; 85730; 86850; 86900; 86901; 86920; 90471; 90715; 93306; 93970; 94150; 94640; 94664; 94667; 94668; 96374; 96375; J0131; J0330; J0690; J1100; J1580; J1650; J2250; J2270; J2370; J2405; J3370; J7050; J7120; J7613; J7614; J7626; J8501; P9016; Q9967

== ENCOUNTER 2018-02-23 14:31 | Emergency (ER) | payer MEDICARE ==
[~2018-02-23] VITALS: Ht 154.9 cm; Wt 78.0 kg
[~2018-02-23 14:31] MED LIST changes: +DOCU1CAP39 PO; +HYDR-3583 PO; +LISI-515 PO; +WALKER/ADULT/FO1 MIS; +WHEEMIS3; +XARE10TA PO
[2018-02-23 14:33] VITALS: BP 141/61; PULSE 98; RESP 16; TEMP 98; O2SAT 93
[2018-02-23] MEDS ORDERED: AMLO5TAB2 PO (14:47)
[2018-02-23] MEDS ORDERED: ASPI1TAB57 PO (14:47)
[2018-02-23] MEDS ORDERED: SPIRCAP INH (14:48)
[2018-02-23] MEDS ORDERED: LEVA0.637 INH (14:48)
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
--- NOTE | 2018-02-23 15:08 | RADRPT ---
EXAM DATE/TIME: 02/23/2018 14:51 [facility] COMPARISON: TIBIA/FIBULA LEFT (AP/LAT), January 04, 2018, 11:57. INDICATIONS : Left ankle pain post fall today. Recent ORIF of left tib/fib 01/04/2018. MEDICAL HISTORY : None. SURGICAL HISTORY : ORIF left tib/fib. ENCOUNTER: Initial ACUITY: 1 day PAIN SCORE: 3/10 LOCATION: Left ankle FINDINGS: No acute fracture or dislocation is noted. Hardware is again noted within the tibia status post ORIF. Healing fracture of the left distal fibula is noted. Diffuse osteoporosis is noted. CONCLUSION: No acute fracture or dislocation. Diffuse osteoporosis. Healing fractures of the left distal fibula and mid tibia. Kelechi Zaldivar MD on February 23, 2018 at 15:03 Board Certified Radiologist. This report was verified electronically.
--- NOTE | 2018-02-23 15:09 | RADRPT ---
EXAM DATE/TIME: 02/23/2018 14:51 [facility] COMPARISON: TIBIA/FIBULA LEFT (AP/LAT), January 04, 2018, 11:57. INDICATIONS : Left tib/fib pain post fall today. Recent ORIF of left tib/fib 01/04/2018. MEDICAL HISTORY : None. SURGICAL HISTORY : ORIF left lower extremity. ENCOUNTER: Initial ACUITY: 1 day PAIN SCORE: 3/10 LOCATION: Left Tib/fib FINDINGS: Hardware is again noted within the left tibia status post ORIF. The mid tibial and distal fibular fra ctures demonstrate ongoing healing. No acute fracture or dislocation is noted. CONCLUSION: No acute fracture or dislocation. Ongoing healing of the mid tibial and distal fibula r fractures. Kelechi Zaldivar MD on February 23, 2018 at 15:05 Board Certified Radiologist. This report was verified electronically.
== END 2018-02-23 15:57 | disposition home or self-care (01) ==
LOC: PHEFT 14:31
DX: S90.02XA Contusion of left ankle, initial encounter (principal); S82.302D Unspecified fracture of lower end of left tibia, subsequent encounter for closed fracture with routine healing; S82.832D Other fracture of upper and lower end of left fibula, subsequent encounter for closed fracture with routine healing; M81.0 Age-related osteoporosis without current pathological fracture; J44.9 Chronic obstructive pulmonary disease, unspecified; I10 Essential (primary) hypertension; K21.9 Gastro-esophageal reflux disease without esophagitis; X50.1XXA Overexertion from prolonged static or awkward postures, initial encounter; V89.2XXD Person injured in unspecified motor-vehicle accident, traffic, subsequent encounter
CPT/HCPCS: 73590; 73610; 99283